=== PATIENT | male | born 1960 | race Caucasian/White ===

== ENCOUNTER 2020-11-15 08:55 | Day surgery (SDC) | payer MEDICARE, OTHER, SELFPAY ==
--- NOTE | 2020-11-14 08:57 | HO.ANESPROP2 ---
Documented by User: Carolyn Duarte NP 11/14/20 08:58 HPI - Anesthesia Eval Consult details Narrative: 60yo M for Upper Endoscopy [facility] Past Medical History Medical History (Updated 11/14/20 @ 08:39 by Abby Zhou RN) Chronic back pain Chronic neck pain Depression Hepatitis C Surgical History Surgical History (Updated 11/14/20 @ 08:40 by Abby Zhou RN) History of back surgery History of removal of cyst Hx of colonoscopy Hx of eye surgery Hx of oral surgery Social History Social History Patient Tobacco Use Status: Former Tobacco user Tobacco use type: Cigarette Use of substances other than those prescribed or required for medical reasons: No Are you DNR?: No Advance Directives: No Advance Directives Information Provided: Yes Recently lost weight without trying: No Nutrition Risks: No Nutritional Risk Poor oral hygiene: No Meds Allergies Allergy/AdvReac Type Severity Reaction Status Date / Time No Known Allergies Allergy Verified 11/15/20 09:11 Home Medications Medication Instructions Recorded Confirmed Last Taken Type Tylenol Extra Strength 11/14/20 Unknown History amitriptyline 10 mg tablet 10 mg PO BEDTIME 11/14/20 11/14/20 Unknown History baclofen 10 mg tablet 10 mg PO TID 11/14/20 11/14/20 Unknown History ibuprofen 800 mg tablet 800 mg PO BID PRN 11/14/20 11/14/20 Unknown History Exam Exam Date and Time: November 14, 2020 0857 Assessment and Plan Assessment Anesthesia Assessment: Chart Reviewed Documented by User: Nima Benson MD 11/15/20 09:40 [facility] Past Medical History Medical History (Updated 11/14/20 @ 08:39 by Abby Zhou RN) Chronic back pain Chronic neck pain Depression Hepatitis C Family History Family history of problems with anesthesia: No Surgical History Surgical History (Updated 11/14/20 @ 08:40 by Abby Zhou RN) History of back surgery History of removal of cyst Hx of colonoscopy Hx of eye surgery Hx of oral surgery History of Problems with Anesthesia: No Social History Social History Patient Tobacco Use Status: Former Tobacco user Tobacco use type: Cigarette Use of substances other than those prescribed or required for medical reasons: No Are you DNR?: No Advance Directives: No Advance Directives Information Provided: Yes Recently lost weight without trying: No Nutrition Risks: No Nutritional Risk Poor oral hygiene: No Meds Allergies Allergy/AdvReac Type Severity Reaction Status Date / Time No Known Allergies Allergy Verified 11/15/20 09:11 Home Medications Medication Instructions Recorded Confirmed Last Taken Type Tylenol Extra Strength 11/14/20 Unknown History amitriptyline 10 mg tablet 10 mg PO BEDTIME 11/14/20 11/14/20 Unknown History baclofen 10 mg tablet 10 mg PO TID 11/14/20 11/14/20 Unknown History ibuprofen 800 mg tablet 800 mg PO BID PRN 11/14/20 11/14/20 Unknown History Exam Airway Mallampati Class: II TM Dist: >3cm Neck ROM: Full Loose/Missing/Broken Teeth: No Heart: [id number] Lungs: cta b/l Assessment and Plan Assessment Anesthesia Assessment: Anesthesia Plan Discussed Final Anesthetic Review Family History of Problems with Anesthesia: No History of Problems with Anesthesia: No NPO: Yes ASA Class: II Final Preanesthetic Review: No Changes in Pt Med Stat, Meds/Allgs Chart Reviewed, Consent Obtained/Reviewed and Anes Risks/Benef Reviewed Patient Risk: Intermediate Procedure Risk: Low Assessment/Block/Sedation in SS: Assess/Block/Sedation-SS Anesthetic Plan Anesthetic Plan: MAC: and Agree w/ Assess. and Plan Disposition: Standard PACU
[2020-11-15 09:14] VITALS: BMI 29.5
[2020-11-15 09:31] VITALS: BP 142/84; PULSE 85; RESP 16; TEMP 36.6; O2SAT 96
[2020-11-15] MEDS: Lactated Ringers 1,000 ML 100 ML IVCONT (09:41)
--- NOTE | 2020-11-15 10:51 | MHC.SHP ---
Pre-Procedural Eval Section A Date of Service: 11/15/20 The patient is an INPATIENT: No Changes since office visit: No Cold of Flu in the past 2 weeks, No New Medical Problems, No Changes in Medication and No Patient answered all questions The History & Physical has been completed within 30 days and I have reviewed it.: Yes Section B Chief Complaint: epigastric pain Allergies: Allergies Allergy/AdvReac Type Severity Reaction Status Date / Time No Known Allergies Allergy Verified 11/15/20 09:11 Plan I have reviewed the history and physical and performed a pertinent physical examination on my patient. No changes have occurred unless specified.
--- NOTE | 2020-11-15 11:08 | P.BOP_ITS ---
Brief Operative Note Date of Service: 11/15/20 Pre-op diagnosis: epigastric pain Post-op diagnosis: same (normal) Procedure: EGD Surgeon: Tod Galdamez Anesthesia: MAC Was an Lining Vamper used for this Procedure?: No Estimated blood loss (mL): 5 Pathology: other (antral and egj bxs) Disposition: PACU
[2020-11-15 11:11] VITALS: BP 108/72; PULSE 71; RESP 14; TEMP 36.8; O2SAT 94
[2020-11-15 11:26] VITALS: BP 119/71; PULSE 67; RESP 16; O2SAT 98
--- NOTE | 2020-11-15 11:31 | OP_ITS ---
SURGEON: Tod Galdamez MD INDICATIONS: Epigastric and right upper quadrant pain. PREOPERATIVE DIAGNOSIS: POSTOPERATIVE DIAGNOSIS: PROCEDURE PERFORMED: Upper endoscopy with biopsy. ESTIMATED BLOOD LOSS: COMPLICATIONS: ANESTHESIA: ASSISTANTS: SPECIMENS: MEDICATIONS: Monitored anesthesia care. DESCRIPTION OF PROCEDURE: History and physical performed. The risks and benefits of the procedure were explained to the patient. Informed consent was obtained. The patient was placed in the left lateral decubitus position. The Olympus video gastroscope was introduced into the esophagus, stomach, and duodenum. Examination was performed and the scope was removed. He tolerated the procedure well and was taken to recovery area in stable condition. FINDINGS: Esophagus: The esophagus was normal. The EG junction was slightly irregular. There was no esophagitis. Biopsies were obtained from the EG junction. Stomach: Stomach showed no evidence of masses, ulcers, or polyps. Antral biopsies were obtained to rule out H pylori. Duodenum: The bulb and second portion were normal. IMPRESSION: Normal upper endoscopy. RECOMMENDATION: Follow up the biopsy results. MD MARCELA Arreola/KLAUSL / [id number]
[2020-11-15 11:41] VITALS: BP 130/89; PULSE 69; RESP 18; TEMP 36.7; O2SAT 100
== END 2020-11-15 13:00 | disposition home or self-care (01) ==
PROVIDERS: PCP Hospitalist; Visit Provider Internal Medicine Gastroenterology
PROC: 0DJ08ZZ Inspection of Upper Intestinal Tract, Via Natural or Artificial Opening Endoscopic (ICD-10-PCS; CPT 43235; principal; 2020-11-15 10:30)
DX: R10.13 Epigastric pain (principal); R10.11 Right upper quadrant pain
CPT/HCPCS: 43239; 88305; 88342; J3010

== ENCOUNTER 2020-11-22 08:07 | Outpatient (REF) | payer MEDICARE, OTHER, SELFPAY ==
--- NOTE | ~2020-11-22 | US_ITS ---
EXAMINATION: US ABDOMEN COMPLETE CLINICAL INFORMATION: Epigastric pain. COMPARISON: CT abdomen and pelvis without contrast dated 01/17/2010 TECHNIQUE: Real-time imaging of the abdominal viscera. Technically difficult study secondary to bowel gas. FINDINGS: PANCREAS: Predominantly obscured by bowel gas. The visualized portion of the pancreatic head is unremarkable. ABDOMINAL AORTA: The proximal, mid, and distal segments are normal in caliber. INFERIOR VENA CAVA: Visualized portions are normal. LIVER: The liver is normal in size. The liver contour is normal. There is diffuse increased liver parenchymal echogenicity, consistent with hepatic steatosis. Multiple simple-appearing hepatic cysts with the largest measuring up to 3.5 cm. No additional hepatic parenchymal lesion or biliary ductal dilatation. There is no intrahepatic biliary duct dilatation seen. GALLBLADDER: Normal. The gallbladder is physiologically distended without evidence of stones, sludge, polyps, wall thickening, or pericholecystic fluid. COMMON BILE DUCT: Normal in caliber measuring 0.34 cm in diameter. RIGHT KIDNEY: Normal. No hydronephrosis. No renal calculi or focal parenchymal lesions. The kidney measures 9.7 cm in maximum dimension. LEFT KIDNEY: Normal. No hydronephrosis. No renal calculi or focal parenchymal lesions. The kidney measures 10.8 cm in maximum dimension. SPLEEN: Normal. The spleen measures 8.7 cm in maximum dimension. FREE FLUID: None. US/US abdomen complete IMPRESSION: 1. Increased hepatic parenchymal echogenicity, which can be seen in the setting of steatosis. Underlying hepatocellular disease cannot be excluded. Simple hepatic cysts measuring up to 3.5 cm, new when compared to the CT dated 01/17/2010. No concerning hepatic parenchymal lesion or biliary ductal dilatation. 2. No cholelithiasis, gallbladder wall thickening, or pericholecystic free fluid to suggest acute cholecystitis.
== END 2020-11-22 08:08 | disposition home or self-care (01) ==
LOC: HO.US 08:07
PROVIDERS: PCP Hospitalist; Visit Provider Internal Medicine Gastroenterology
DX: R10.13 Epigastric pain (principal)
CPT/HCPCS: 76700

== ENCOUNTER 2021-03-01 10:12 | Outpatient (REF) | payer MEDICARE, OTHER, SELFPAY ==
[2021-03-01 14:00] LABS: Hematocrit 43.5 % (42.0-52.0); Hemoglobin 14.2 g/dl (14.0-18.0); Mean Corpuscular HGB Conc 32.6 g/dl (31.0-36.0); Mean Corpuscular Hemoglobin 29.4 pg (27.0-33.0); Mean Corpuscular Volume 90.1 fL (80.0-98.0); Mean Platelet Volume 10.1 fL (9.4-12.4); Platelet Count 300 X10*3/uL (160-400); Red Blood Count 4.83 X10*6/uL (4.60-5.80); Red Cell Distribution Width 14.6 % (11.0-16.0); White Blood Count 7.2 X10*3/uL (4.8-10.8)
[2021-03-01 14:04] LABS: Prothrombin Time 10.8 SEC (9.9-13.0)
[2021-03-01 14:28] LABS: Alanine Aminotransferase 24 U/L (0-40); Albumin Level 4.5 g/dL (3.5-5.0); Alkaline Phosphatase 49 U/L (39-117); Aspartate Amino Transferase 21 U/L (5-37); Bilirubin Direct 0.2 mg/dL (0.0-0.5); Bilirubin Total 0.6 mg/dL (0.0-1.0); Total Protein 7.5 g/dL (6.5-8.0)
== END 2021-03-01 10:13 | disposition home or self-care (01) ==
LOC: HO.10HDL 10:12
PROVIDERS: Visit Provider Internal Medicine Gastroenterology
DX: R93.2 Abnormal findings on diagnostic imaging of liver and biliary tract (principal)
CPT/HCPCS: 36415; 80076; 85027; 85610

== ENCOUNTER 2021-03-23 21:51 | Emergency (ER) | payer MEDICARE, OTHER, SELFPAY ==
--- NOTE | ~2021-03-23 | XR_ITS ---
EXAMINATION: XR CHEST CLINICAL INFORMATION: Cough and shortness of breath. COMPARISON: Chest radiograph dated from 02/15/2014. TECHNIQUE: PA view of the chest was obtained. FINDINGS: No significant abnormality is noted involving the heart, lungs, mediastinum, bony thorax or soft tissues. XR/XR chest 1V IMPRESSION: Unremarkable examination.
[2021-03-23 21:56] VITALS: BP 154/94; PULSE 83; RESP 16; TEMP 36.8; O2SAT 97; BMI 28.0
--- NOTE | 2021-03-23 22:37 | ED_ITS ---
HPI - URI/Sore Throat General Chief Complaint: Upper Respiratory Symptoms Stated Complaint: trouble breathing Time Seen by Provider: 03/23/21 22:20 Source: patient Mode of arrival: ambulatory History of Present Illness HPI Narrative: 61-year-old male with a past medical history of chronic back pain, depression, hepatitis-C, presenting to the ED complaining of nonproductive cough and SOB x6 days. Reports returned from [place] today, states went to ED and in [place] and requested nebulizer however wasn't given anything and symptoms have been persistent. Denies fever, chills, chest pain, pedal edema, calf pain, history of clots. Admits tested negative for COVID-19 yesterday prior to return to the [place] MD elicited complaint: cough Onset (ago): day(s) Related Data Home Medications Medication Instructions Recorded Confirmed Tylenol Extra Strength 11/14/20 amitriptyline 10 mg tablet 10 mg PO BEDTIME 11/14/20 11/14/20 baclofen 10 mg tablet 10 mg PO TID 11/14/20 11/14/20 ibuprofen 800 mg tablet 800 mg PO BID PRN 11/14/20 11/14/20 Allergies Allergy/AdvReac Type Severity Reaction Status Date / Time No Known Allergies Allergy Verified 11/15/20 09:11 Review of Systems Verdana 4l Review of Systems: Verdana 4d Verdana 4d Constitutional: No Fever, No Chills ENT/Mouth: No Ear Pain, No Nasal Congestion, No Sinus Pain, No Hoarseness, No sore throat, No Rhinorrhea Cardiovascular: No Chest Pain, + SOB Respiratory: + Cough, No Sputum, No Wheezing, +Dyspnea GastrointestinalGastrointestinal: No Nausea, No Vomiting, No Diarrhea, No Constipation, No Abdominal pain Genitourinary: No Dysuria, No Hematuria, No Flank Pain Musculoskeletal: No joint pain, No Myalgias, No Joint Swelling Skin: No Skin Lesions, No rash Neuro: No Weakness, No Numbness, No Paresthesias Yes all other systems are reviewed and are negative [facility] Past Medical History Attestation statement: The following information was validated with the patient. Medical History Chronic back pain Chronic neck pain Depression Hepatitis C Surgical History History of back surgery History of removal of cyst Hx of colonoscopy Hx of eye surgery Hx of oral surgery Social History Social History Patient Tobacco Use Status: Former Tobacco user Tobacco use type: Cigarette Advance Directives: No Advance Directives Information Provided: Yes Physical Exam Verdana 4l Vital Signs: Verdana 4d Verdana 4d Vital Signs: Verdana 4d Verdana 4Bd Last Vital Signs Verdana 4d [facility] New 4d [facility] New 4d Temp 98.2 F 03/23/21 21:56 [facility] New 4d Pulse 71 03/23/21 23:17 [facility] New 4d Resp 16 03/23/21 23:17 BP 154/94 H 03/23/21 21:56 Pulse Ox 97 03/23/21 21:56 BMI result Body Mass Index 28.0 Const: General: cooperative, healthy appearing, comfortable, no acute distress and anxious Orientation/consciousness: patient oriented x3 Limitations: no limitations HENMT: Head: Yes normal to inspection Ears: hearing grossly normal bilaterally General nose exam: Normal external nose present Face and sinus: Yes normal facial exam Throat: Yes posterior oropharynx normal, Yes tonsils normal and Yes uvula midline Eyes: General: appearance normal, both eyes and all related structures EOM: EOMs intact bilaterally Neck: Neck: Yes normal visual inspection and Yes no meningeal signs Resp: Effort & Inspection: normal respiratory effort, Actively coughing Quality: dry, no respiratory distress and no stridor Auscultation: clear to auscultation bilaterally, no crackles, no rales, no rhonchi and lung sounds not diminished Cardio: Rate: regular rate Heart sounds: S1 normal heart sound present and S2 normal heart sound present GI: Inspection: Yes normal to inspection Skin: Rashes: no rashes Wounds: no wounds Neuro: General: patient oriented x3 and no meningeal signs Gait exam (Neuro): Normal gait present Extrem: General: Yes normal to inspection, Yes no pedal edema and Yes no calf tenderness Course Course Course Narrative: XR chest 1V IMPRESSION: Unremarkable examination. -COVID-19 negative. Patient reports symptomatic improvement after DuoNeb. Results discussed with patient including worrisome signs and symptoms and strict return precautions including close follow-up with PCP. Patient verbalized understanding & feels safe for discharge home at this time MDM - URI/Sore Throat MDM Narrative Medical decision making narrative: 61-year-old male with a past medical history of chronic back pain, depression, hepatitis-C, presenting to the ED complaining of nonproductive cough and SOB x6 days. On exam vital signs stable, NAD/nontoxic appearing, lungs CTA, no pedal edema/calf tenderness. Concern for viral syndrome/COVID-19 vs bronchitis. Rule out pneumonia. Low concern for ACS/PE Plan: CXR, COVID-19 testing, DuoNeb Differential Diagnosis Differential diagnosis: Likely upper respiratory infection, viral infection and bronchitis Medical Records Attestation: I reviewed the patient's medical records. Lab Data Attestation: I reviewed the patient's lab results. Labs: Lab Results 03/23/21 Range/Units 22:42 COVID-19 (TIMOTHY) Negative (Negative) COVID-19 Clin Com See Note Discharge Plan Discharge Clinical Impression: Upper respiratory infection Patient Disposition: Home, Self-Care Instructions: Upper Respiratory Infection (DC) Additional Instructions: Your chest x-ray was unremarkable today in the ED Use albuterol inhaler at home as needed for shortness of breath/wheezing Follow-up with your doctor Rest, stay hydrated, take Tylenol Motrin as needed. If symptoms persist or worsen, constant worsening shortness of breath, developed chest pain, fever please return to the ED Prescriptions: No Action ibuprofen 800 mg Tablet 800 mg PO BID PRN (Reason: Pain) 0RF amitriptyline 10 mg Tablet 10 mg PO BEDTIME 0RF Tylenol Extra Strength 0RF baclofen 10 mg Tablet 10 mg PO TID 0RF Referrals: Physician,Unknown J [Primary Care Provider] - 2 days
[2021-03-23 23:00] LABS: COVID-19 Test Negative (Negative)
[2021-03-23] MEDS: Albuterol/Iprat 2.5/0.5MG 3 ML AMPUL.NEB INHALE (23:14)
[2021-03-23] MEDS: Benzonatate 100 MG CAPSULE 200 MG PO (23:16)
[2021-03-23 23:17] VITALS: PULSE 71; RESP 16; O2SAT 94
== END 2021-03-23 23:31 | disposition home or self-care (01) ==
PROVIDERS: Physician Assistant; Emergency Provider Emergency Medicine
DX: J06.9 Acute upper respiratory infection, unspecified (principal); Z20.822 Contact with and (suspected) exposure to COVID-19; R06.02 Shortness of breath; B19.20 Unspecified viral hepatitis C without hepatic coma
CPT/HCPCS: 71045; 87635; 94640; 99283; 99284

== ENCOUNTER 2021-05-14 21:20 | Emergency (ER) | payer OTHER, SELFPAY ==
[2021-05-14 21:22] VITALS: BP 139/85; PULSE 83; RESP 16; TEMP 36.6; O2SAT 97; BMI 27.9
[2021-05-14 21:56] VITALS: BP 122/75; PULSE 77; RESP 18; TEMP 36.6; O2SAT 95
[2021-05-14 22:01] LABS: COVID-19 Test Negative (Negative); IDNOW Serial# 16C4AD1C
--- NOTE | 2021-05-14 23:16 | ED.URI ---
HPI - URI/Sore Throat General Chief Complaint: Upper Respiratory Symptoms Stated Complaint: SoB, Congested Time Seen by Provider: 05/14/21 23:00 Source: patient Mode of arrival: ambulatory Limitations: no limitations History of Present Illness HPI Narrative: 61-year-old male who presents emergency department for evaluation of shortness of breath, nasal and chest congestion. Patient states that he woke up in the morning and felt short of breath and head congestion his chest. He describes as chest congestion as a discomfort in his anterior chest which is worse with breathing and coughing. He also had a cough which was nonproductive. He did feel short of breath but denied dyspnea on exertion. He states he gets similar symptoms whenever he gets in infection. He has an albuterol inhaler and nebulizer that he uses when he feels this way but he did not use these medications today. He states that throughout the day the symptoms improved. Around 20:00 hours the symptoms came back. He felt anxious. Therefore he came to the emergency department for evaluation. He states that he had a similar illness last month and was COVID negative. The patient states that he has had a Mathieu Mathieu COVID vaccine and received a booster vaccine but does not know the name of the booster shot. He denied fever, chills, nausea, vomiting, diarrhea, myalgias, arthralgias, abdominal pain, frequency, changes bowel movements. MD elicited complaint: cough and other (chest congestion) Pertinent past history: asthma (with infections) Onset (ago): day(s) (1) Consistency: intermittent Severity: moderate Description of mucous: other (non-productive) Able to tolerate fluids by mouth: Yes Exacerbating factors: nothing Relieving factors: nothing Associated symptoms: rhinorrhea, nasal congestion, cough and shortness of breath Treatments prior to arrival: none Related Data Home Medications Medication Instructions Recorded Confirmed Tylenol Extra Strength 11/14/20 amitriptyline 10 mg tablet 10 mg PO BEDTIME 11/14/20 11/14/20 baclofen 10 mg tablet 10 mg PO TID 11/14/20 11/14/20 ibuprofen 800 mg tablet 800 mg PO BID PRN 11/14/20 11/14/20 Previous Rx's Medication Instructions Recorded prednisone 20 mg tablet 60 mg PO DAILY 5 Days #15 tab 05/14/21 Allergies Allergy/AdvReac Type Severity Reaction Status Date / Time No Known Allergies Allergy Verified 11/15/20 09:11 Review of Systems Review of Systems: Yes all other systems are reviewed and are negative [facility] Past Medical History [facility] Narrative: Social history:. The patient denies tobacco use. He is a former smoker. He quit 25 years prior. He smoked for 10 years. He denies alcohol use. He denies drug use. Medical History Chronic back pain Chronic neck pain Depression Hepatitis C Surgical History History of back surgery History of removal of cyst Hx of colonoscopy Hx of eye surgery Hx of oral surgery Social History Social History Patient Tobacco Use Status: Former Tobacco user Tobacco use type: Cigarette Advance Directives: No Advance Directives Information Provided: Yes Physical Exam Vital Signs: Vital Signs: Last Vital Signs Temp 97.9 F 05/14/21 21:56 Pulse 77 05/14/21 21:56 Resp 18 05/14/21 21:56 BP 122/75 05/14/21 21:56 Pulse Ox 95 05/14/21 21:56 BMI result Body Mass Index 27.9 Const: General: cooperative and no acute distress Orientation/consciousness: oriented to person and oriented to place Limitations: no limitations HEENT: Head: Yes normal to inspection, Yes normocephalic and Yes atraumatic Ears: external ears normal General nose exam: Normal external nose present Face and sinus: Yes normal facial exam Mouth: Normal oral and palatal mucosa present Throat: Yes posterior oropharynx normal Eyes: General: appearance normal, both eyes and all related structures Pupils: Equal, round and reactive pupils present Neck: Neck: Yes normal visual inspection, Yes no lymphadenopathy, Yes trachea midline and Yes supple Chest: Chest palpation & inspection: normal inspection of the chest and normal palpation of entire chest wall Resp: Effort & Inspection: normal respiratory effort and able to speak in complete sentences Auscultation: no rales, no rhonchi and wheezes scattered wheezes and throughout Cardio: Rate: regular rate Rhythm: regular rhythm Heart sounds: S1 normal heart sound present, S2 normal heart sound present and no murmurs GI: Inspection: Yes normal to inspection Palpation (GI): Soft to palpation, nontender and no guarding Auscultation: normal bowel sounds : General: Yes no CVA tenderness Back/Spine/Pelvis: Back: no CVA tenderness Skin: General skin exam: no rashes or lesions noted Neuro: General: oriented to person and oriented to place Cranial nerves: Yes CN's II-XII intact bilaterally and Yes Equal, round and reactive pupils present Cognition (Neuro): normal cognition Motor exam (neuro): 5/5 motor strength present throughout Extrem: General: Yes normal to inspection Psych: Appearance: grossly normal Speech and movement: Normal speech and movement present Affect: normal affect Attitude: cooperative Thought process: Normal thought process present Thought content: Normal thought content present Course Course Course Narrative: 61-year-old male who presents emergency department for evaluation of 1 day of rhinorrhea, chest congestion, nonproductive cough and shortness of breath. The patient did not take any medications prior to coming to emergency department vital signs were stable. Lung exam revealed diffuse wheezing with no rales or rhonchi. COVID-19 test was negative . The patient's presentation is consistent with a viral URI causing bronchospasm. I did discuss this with him. Patient was given 4 puffs often albuterol inhaler in the emergency department with improvement of his wheezing. He is also treated prednisone 60 mg orally. The patient was started on prednisone 60 mg once a day for 5 days, he is advised to uses albuterol 2 puffs 4 times a day. He was given verbal and printed instructions and discharged home. MDM - URI/Sore Throat Lab Data Labs: Lab Results 05/14/21 Range/Units 21:32 COVID-19 (TIMOTHY) Negative (Negative) COVID-19 Clin Com See Note Discharge Plan Discharge Clinical Impression: Acute bronchospasm Upper respiratory infection Qualifiers: URI type: unspecified viral URI Qualified Code(s): J06.9 - Acute upper respiratory infection, unspecified Patient Disposition: Home, Self-Care Instructions: Upper Respiratory Infection (ED), Bronchospasm (ED) Additional Instructions: You received 4 puffs often albuterol inhaler here in the emergency department. Use your albuterol inhaler 2 puffs 4 times a day for the next 5 days. You received prednisone 60 mg orally. Take prednisone 20 mg pills, 3 pills once a day for 5 days, take your next dose tomorrow morning. Take Tylenol (acetaminophen) 500 mg pills, 2 pills every 4 to 6 hours as needed for pain or fever. Your COVID-19 test in the emergency department was negative. If you get symptoms that are more consistent with COVID-19 over the next 3-4 days then you should consider getting a repeat COVID-19 test. Follow-up with your doctor in 2 days. Please return to the emergency department if your symptoms get worse or if you develop any symptoms that are concerning to you. Prescriptions: New prednisone 20 mg tablet 60 mg PO DAILY 5 Days Qty: 15 0RF No Action ibuprofen 800 mg Tablet 800 mg PO BID PRN (Reason: Pain) 0RF amitriptyline 10 mg Tablet 10 mg PO BEDTIME 0RF Tylenol Extra Strength 0RF baclofen 10 mg Tablet 10 mg PO TID 0RF
[2021-05-14] MEDS: Albuterol Sulfate 90 MCG 8 GM INHALER 4 PUFF INHALE (23:27)
[2021-05-14] MEDS: predniSONE 20 MG TABLET 60 MG PO (23:28)
--- NOTE | 2021-05-14 23:44 | PC.NURSE ---
pt a&o, no sob or chest pain at this time. pt is in no distress at time of discharge. Reviewed discharge instructions and medications. Pt verbalized understanding.
== END 2021-05-14 23:46 | disposition home or self-care (01) ==
PROVIDERS: Emergency Provider Emergency Medicine Emergency Medical Services
DX: J98.01 Acute bronchospasm (principal); J06.9 Acute upper respiratory infection, unspecified; R06.02 Shortness of breath; R05.9 Cough, unspecified; Z20.822 Contact with and (suspected) exposure to COVID-19; Z87.891 Personal history of nicotine dependence
CPT/HCPCS: 87635; 99284

== ENCOUNTER 2022-07-20 22:57 | Emergency (ER) | payer MEDICARE, MEDICAID, SELFPAY ==
[2022-07-20 23:10] VITALS: BP 146/95; PULSE 80; RESP 18; O2SAT 95; BMI 28.7
[2022-07-20 23:36] LABS: MANUAL DIFF FLAG NO
[2022-07-20 23:37] LABS: Basophils Absolute Auto 0.1 X10*3/uL (0.0-0.2); Basophils Percent Auto 1.1 % (0-2); Eosinophils Absolute Auto 0.3 X10*3/uL (0.0-0.4); Eosinophils Percent Auto 5.1 % (0-4); Hematocrit 38.4 % (42.0-52.0); Hemoglobin 12.9 g/dl (14.0-18.0); Imm Gran Abs Auto 0.02 X10*3/uL (0.00-0.03); Imm Gran Pct Auto 0.3 % (0.0-0.4); Lymphocytes Percent Auto 31.4 % (20-40); Mean Corpuscular HGB Conc 33.6 g/dl (31.0-36.0); Mean Corpuscular Hemoglobin 30.1 pg (27.0-33.0); Mean Corpuscular Volume 89.5 fL (80.0-98.0); Mean Platelet Volume 9.7 fL (9.4-12.4); Monocytes Absolute Auto 0.7 X10*3/uL (0.1-1.2); Monocytes Percent Auto 10.9 % (2-11); Neutrophils Absolute Auto 3.3 x10*3/uL (2.0-8.3); Neutrophils Percent Auto 51.2 % (45-73); Platelet Count 278 X10*3/uL (160-400); Red Blood Count 4.29 X10*6/uL (4.60-5.80); White Blood Count 6.4 X10*3/uL (4.8-10.8)
[2022-07-20 23:56] LABS: Alanine Aminotransferase 18 U/L (0-40); Albumin Level 4.3 g/dL (3.5-5.0); Alkaline Phosphatase 74 U/L (39-117); Anion Gap 13 (12-20); Aspartate Amino Transferase 20 U/L (5-37); Bilirubin Total 0.2 mg/dL (0.0-1.0); Blood Urea Nitrogen 18 mg/dL (9-16); Calcium 9.5 mg/dL (8.4-10.2); Carbon Dioxide 24 mmol/L (22-29); Chloride 109 mmol/L (96-108); Creatinine Clr Calc Pharmacy 75.4; Estimated Glomerular Filt Rate > 60; Glucose Random 106 mg/dL (60-115); Potassium 3.9 mmol/L (3.3-5.1); Sodium 142 mmol/L (135-145)
[2022-07-21 01:20] VITALS: BP 141/84; PULSE 65; RESP 10; TEMP 36.5; O2SAT 97
--- NOTE | 2022-07-21 01:38 | ED_ITS ---
HPI - SOB/Dyspnea General Chief Complaint: Dyspnea Stated Complaint: shortness of breath Time Seen by Provider: 07/21/22 01:19 Source: patient Mode of arrival: ambulatory Limitations: no limitations History of Present Illness HPI Narrative: 62-year-old male presents with shortness of breath. His acute on chronic. Moderate to severe. There is no clear relieving or exacerbating features. Denies any fevers or chills. Denies any cough. He does admit to having some wheezing. He has tried albuterol inhaler which he no using 3 times a day to where is a wrist previously he is worse or adequately. He does report having spirometry at some point in the past but is unclear what the results are. Patient also reports having had a recent CT scan but has not been informed of the results. Today, he notes that the albuterol is not helping. Sometimes his symptoms are relieved by walking in the fresh air. Patient denies any chest pain, mucus production or significant coughing Related Data Home Medications Medication Instructions Recorded Confirmed Tylenol Extra Strength 11/14/20 amitriptyline 10 mg tablet 10 mg PO BEDTIME 11/14/20 11/14/20 baclofen 10 mg tablet 10 mg PO TID 11/14/20 11/14/20 ibuprofen 800 mg tablet 800 mg PO BID PRN Pain 11/14/20 11/14/20 Previous Rx's Medication Instructions Recorded prednisone 20 mg tablet 60 mg PO DAILY 5 days #15 tabs 05/14/21 fluticasone 250 mcg-salmeterol 50 1 inh inhalation Q12H #60 ea 07/21/22 mcg/dose blistr powdr for inhalation (Advair Diskus) prednisone 20 mg tablet 20 mg PO DAILY #5 tabs 07/21/22 Allergies Allergy/AdvReac Type Severity Reaction Status Date / Time No Known Allergies Allergy Verified 11/15/20 09:11 Review of Systems Review of Systems: CONSTITUTIONAL: Denies weight loss, fever and chills. HEENT: Denies changes in vision and hearing. RESPIRATORY: Positive SOB and cough. CV: Denies palpitations no CP. GI: Denies abdominal pain, nausea, vomiting and diarrhea. : Denies dysuria and urinary frequency. MSK: Denies myalgia and joint pain. SKIN: Denies rash and pruritus. NEUROLOGICAL: Denies headache and syncope. PSYCHIATRIC: Denies recent changes in mood. Denies anxiety and depression. All other ROS are negative unless in HPI [facility] Past Medical History Medical History Chronic back pain Chronic neck pain Depression Hepatitis C Surgical History History of back surgery History of removal of cyst Hx of colonoscopy Hx of eye surgery Hx of oral surgery Social History Social History Patient Tobacco Use Status: Former Tobacco user Tobacco use type: Cigarette Advance Directives: No Advance Directives Information Provided: Yes Physical Exam Vital Signs: Vital Signs: Last Vital Signs Temp 97.7 F 07/21/22 01:20 Pulse 65 07/21/22 01:20 Resp 10 L 07/21/22 01:20 BP 141/84 H 07/21/22 01:20 Pulse Ox 97 07/21/22 01:20 O2 Del Method Room Air 07/21/22 01:20 BMI result Body Mass Index 28.7 GEN: Well developed, no acute distress, alert, oriented HEENT: Normocephalic, atraumatic, normal external ears, nose appears normal, no oropharyngeal edema or exudates Eyes: Normal to appearance Neck: Supple, no lymphadenopathy Respiratory: Talks in complete sentences, no respiratory distress, clear to auscultation bilaterally Cardiovascular: Regular rate and rhythm, no murmurs rubs or gallops Abdomen: Soft, nontender, nondistended, no guarding, no rebound Back: No CVA tenderness Extremities: No clubbing cyanosis or edema Neurologic: No focal neurologic deficits, cranial nerves 2-12 intact, strength is 5/5 bilaterally Skin: No rash Course Course Course Narrative: 60-year-old male presents with acute on chronic shortness of breath. Examination was unremarkable. As he has had a increase in the use of his rescue inhaler from sporadic to now 3 times per day the last 2 weeks, I do believe patient would benefit from a short course oral steroids, inhaled steroids and continued use of his rescue inhaler. I have also would like to refer him to Pulmonary Medicine for full workup. Medical Decision Making Medical Decision Making MDM Narrative: Patient presents with acute on chronic dyspnea. Examination is unremarkable. Differential diagnosis could include asthma, COPD, COPD exacerbation, bronchitis, pneumonia, deconditioning, anemia. Patient will have routine lab testing. Patient had a recent CT scan of the chest which is not available. Lungs are clear to auscultation bilateral. I do not believe an x-ray would be helpful at this time as I doubt he does have pneumonia or other infectious etiology of his symptoms. I will recommend oral and inhaled steroids to augment his rescue inhaler and referral to Pulmonary Medicine. Differential Diagnosis Differential Diagnoses: The differential diagnosis associated with the presentation includes (See above) Dyspnea Lab Data MDM Lab Attestation statement: I reviewed the patient's lab results. 07/20/22 23:31 07/20/22 23:31 Labs: Lab Results 07/20/22 07/20/22 Range/Units 23:31 23:31 WBC 6.4 (4.8-10.8) X10*3/uL RBC 4.29 L (4.60-5.80) X10*6/uL Hgb 12.9 L (14.0-18.0) g/dl Hct 38.4 L (42.0-52.0) % MCV 89.5 (80.0-98.0) fL MCH 30.1 (27.0-33.0) pg MCHC 33.6 (31.0-36.0) g/dl RDW 14.0 (11.0-16.0) % Plt Count 278 (160-400) X10*3/uL MPV 9.7 (9.4-12.4) fL Immature Gran % (Auto) 0.3 (0.0-0.4) % Neut % (Auto) 51.2 (45-73) % Lymph % (Auto) 31.4 (20-40) % [place] % (Auto) 10.9 (2-11) % Eos % (Auto) 5.1 H (0-4) % Baso % (Auto) 1.1 (0-2) % Lymph # (Auto) 2.0 (1.2-4.9) X10*3/uL [place] # (Auto) 0.7 (0.1-1.2) X10*3/uL Eos # (Auto) 0.3 (0.0-0.4) X10*3/uL Baso # (Auto) 0.1 (0.0-0.2) X10*3/uL Abs Immat Gran (auto) 0.02 (0.00-0.03) X10*3/uL Absolute Neuts (auto) 3.3 (2.0-8.3) x10*3/uL Absolute Nucleated RBC 0.000 (0.0-0.012) X10*3/uL Nucleated RBC % (auto) 0.0 (0.0-0.2) /100WBC Sodium 142 (135-145) mmol/L Potassium 3.9 (3.3-5.1) mmol/L Chloride 109 H (96-108) mmol/L Carbon Dioxide 24 (22-29) mmol/L Anion Gap 13 (12-20) BUN 18 H (9-16) mg/dL Creatinine 1.15 (0.5-1.4) mg/dL Estim Creat Clear Calc 75.4 Estimated GFR > 60 Random Glucose 106 (60-115) mg/dL Calcium 9.5 (8.4-10.2) mg/dL Total Bilirubin 0.2 (0.0-1.0) mg/dL AST 20 (5-37) U/L ALT 18 (0-40) U/L Alkaline Phosphatase 74 (39-117) U/L Total Protein 7.0 (6.5-8.0) g/dL Albumin 4.3 (3.5-5.0) g/dL Tests considered The following testing was considered but not selected: X-ray Prescription Management I considered prescription management with: Antibiotic Discharge Plan Discharge Clinical Impression: Chronic dyspnea Patient Disposition: Home, Self-Care Instructions: How to Use a Metered-Dose Inhaler (ED), Dyspnea (ED) Prescriptions: New fluticasone propion-salmeterol [Advair Diskus] 250-50 mcg/dose blister with device 1 inh inhalation Q12H Qty: 60 0RF prednisone 20 mg tablet 20 mg PO DAILY Qty: 5 0RF No Action ibuprofen 800 mg Tablet 800 mg PO BID PRN (Reason: Pain) amitriptyline 10 mg Tablet 10 mg PO BEDTIME Tylenol Extra Strength baclofen 10 mg Tablet 10 mg PO TID prednisone 20 mg tablet 60 mg PO DAILY 5 Days Qty: 15 0RF Referrals: Ervin Rockwell MD [Physician] -
[2022-07-21] MEDS: dexAMETHasone 2 MG TABLET 10 MG PO (02:10)
== END 2022-07-21 02:22 | disposition home or self-care (01) ==
PROVIDERS: Emergency Provider Emergency Medicine
DX: R06.02 Shortness of breath (principal); Z87.891 Personal history of nicotine dependence; Z79.899 Other long term (current) drug therapy
CPT/HCPCS: 36415; 80053; 85025; 99282; 99283; J8540

== ENCOUNTER 2022-10-13 01:22 | Emergency (ER) | payer MEDICARE, MEDICAID, SELFPAY ==
--- NOTE | ~2022-10-13 | XR_ITS ---
EXAMINATION: XR CHEST CLINICAL INFORMATION: Shortness of breath, cough COMPARISON: 03/23/2021 TECHNIQUE: Frontal view of the chest was obtained. FINDINGS: The lungs are clear with no focal consolidation. No evidence of pneumothorax, pulmonary edema, or pleural effusions. The cardiomediastinal silhouette is unremarkable. No acute osseous findings. XR/XR chest 1V IMPRESSION: No acute cardiopulmonary findings.
[2022-10-13 01:27] VITALS: BP 148/91; PULSE 85; RESP 17; TEMP 36.5; O2SAT 95; BMI 29.5
[2022-10-13 02:40] VITALS: BP 138/86; PULSE 82; RESP 16; TEMP 36.8; O2SAT 96
[2022-10-13 03:11] LABS: COVID-19 Test Negative (Negative); IDNOW Serial# 6674DD1D
--- NOTE | 2022-10-13 04:06 | ED_ITS ---
HPI - General Adult General Chief complaint: General Medical Stated complaint: panic attacks, SOB Time Seen by Provider: 10/13/22 04:00 Source: patient Mode of arrival: ambulatory Limitations: no limitations History of Present Illness HPI narrative: 62-year-old male with history of chronic back pain presents with acute shortness of breath, anxiety and panic. Patient obtained a new mattress today. Went to lie down it was firm he started to feel chest congestion, shortness of breath and then developed a panic attack. He has had similar symptoms in the past associated with anxiety. He went outside and found to be humid in a worsened shortness of breath. Then 1 drove in his truck with the air conditioning on. It this did not improve his symptoms either so he decided to come the hospital. At this point, the patient feels no anxiousness, no shortness of breath, slight congestion he has had no fevers no chills. Denies any chest pain, palpitations, lightheadedness. His symptoms appear to have relieved just by coming to the emergency department. Related Data Home Medications Medication Instructions Recorded Confirmed Tylenol Extra Strength 11/14/20 amitriptyline 10 mg tablet 10 mg PO BEDTIME 11/14/20 11/14/20 baclofen 10 mg tablet 10 mg PO TID 11/14/20 11/14/20 ibuprofen 800 mg tablet 800 mg PO BID PRN Pain 11/14/20 11/14/20 Previous Rx's Medication Instructions Recorded prednisone 20 mg tablet 60 mg PO DAILY 5 days #15 tabs 05/14/21 budesonide 180 mcg/actuation 2 inh inhalation QAM #1 ea 07/21/22 breath activated powder inhaler (Pulmicort Flexhaler) fluticasone 250 mcg-salmeterol 50 1 inh inhalation Q12H #60 ea 07/21/22 mcg/dose blistr powdr for inhalation (Advair Diskus) prednisone 20 mg tablet 20 mg PO DAILY #5 tabs 07/21/22 Allergies Allergy/AdvReac Type Severity Reaction Status Date / Time No Known Allergies Allergy Verified 10/13/22 01:27 Review of Systems Review of Systems: CONSTITUTIONAL: Denies weight loss, fever and chills. HEENT: Denies changes in vision and hearing. RESPIRATORY: + SOB - cough. CV: Denies palpitations no CP. GI: Denies abdominal pain, nausea, vomiting and diarrhea. : Denies dysuria and urinary frequency. MSK: Denies myalgia and joint pain. SKIN: Denies rash and pruritus. NEUROLOGICAL: Denies headache and syncope. PSYCHIATRIC: Denies recent changes in mood. Denies anxiety and depression. All other ROS are negative unless in HPI [facility] Past Medical History Medical History Chronic back pain Chronic neck pain Depression Hepatitis C Surgical History History of back surgery History of removal of cyst Hx of colonoscopy Hx of eye surgery Hx of oral surgery Social History Social History Patient Tobacco Use Status: Former Tobacco user Tobacco use type: Cigarette Advance Directives: No Advance Directives Information Provided: Yes Physical Exam ED Vital Signs: Vital Signs - 24 hr 10/13/22 01:27 10/13/22 02:40 Temperature 97.7 F 98.2 F Pulse Rate 85 82 Respiratory Rate 17 16 Blood Pressure 148/91 H 138/86 Pulse Oximetry 95 96 Oxygen Delivery Method Room Air Room Air BMI result Body Mass Index 29.5 GEN: Well developed, no acute distress, alert, oriented HEENT: Normocephalic, atraumatic, normal external ears, nose appears normal, no oropharyngeal edema or exudates Eyes: Normal to appearance Neck: Supple, no lymphadenopathy Respiratory: Talks in complete sentences, no respiratory distress, clear to auscultation bilaterally Cardiovascular: Regular rate and rhythm, no murmurs rubs or gallops Abdomen: Soft, nontender, nondistended, no guarding, no rebound Back: No CVA tenderness Extremities: No clubbing cyanosis or edema Neurologic: No focal neurologic deficits, cranial nerves 2-12 intact, strength is 5/5 bilaterally Skin: No rash Course Course Course Narrative: The workup is complete. COVID negative. Chest x-ray reveals no acute cardiopulmonary disease. This appears to be likely an anxiety/panic attack. Patient will return for any worsening concerning symptoms. I did offer prescription for hydroxyzine however he preferred not to take this medication. I recommended close follow-up with his primary care provider. Medical Decision Making Medical Decision Making MDM Narrative: 60-year-old male presents with acute shortness of breath, congestion, anxiety and panic. Examination is benign. I will order chest x-ray and COVID test. He had no chest pain, palpitations, lightheadedness. He describes a history of this associated with anxiety and panic. He did have a new mattress which she is wondering if this could have induced some of his anxiety. Currently feels good with no complaints at this time. Has no cardiac history. No history of pulmonary embolus DVT. Will re-evaluate patient following full workup. Differential Diagnosis Differential Diagnoses: The differential diagnosis associated with the presentation includes (Anxiety, stress, viral infection, panic, CHF) Lab Data MDM Lab Attestation statement: I reviewed the patient's lab results. Labs: Lab Results 10/13/22 Range/Units 02:38 COVID-19 (TIMOTHY) Negative (Negative) COVID-19 Clin Com See Note Independent Interpretation I performed an independent interpretation of an: Plain X-Ray (Chest: No acute cardiopulmonary disease) Prescription Management I considered prescription management with: Other (Anxiety medication) Discharge Plan Discharge Clinical Impression: Acute dyspnea, Panic Patient Disposition: Home, Self-Care Instructions: Dyspnea (ED), Panic Attack (ED), Anxiety (ED) Prescriptions: No Action ibuprofen 800 mg Tablet 800 mg PO BID PRN (Reason: Pain) amitriptyline 10 mg Tablet 10 mg PO BEDTIME Tylenol Extra Strength baclofen 10 mg Tablet 10 mg PO TID prednisone 20 mg tablet 60 mg PO DAILY 5 Days Qty: 15 0RF fluticasone propion-salmeterol [Advair Diskus] 250-50 mcg/dose blister with device 1 inh inhalation Q12H Qty: 60 0RF prednisone 20 mg tablet 20 mg PO DAILY Qty: 5 0RF Pulmicort Flexhaler 180 mcg/actuation aerosol powdr breath activated 2 inh inhalation QAM Qty: 1 0RF Referrals: Physician,Unknown J [Primary Care Provider] - (Primary care provider within 3-5 days)
[2022-10-13 04:45] VITALS: BP 133/78; PULSE 72; RESP 18; O2SAT 98
== END 2022-10-13 04:50 | disposition home or self-care (01) ==
PROVIDERS: Emergency Provider Emergency Medicine
DX: R06.02 Shortness of breath (principal); F41.0 Panic disorder [episodic paroxysmal anxiety]
CPT/HCPCS: 71045; 87635; 99283; 99284

== ENCOUNTER 2022-10-17 23:00 | Emergency (ER) | payer OTHER, SELFPAY ==
[2022-10-17 23:03] VITALS: BP 159/92; PULSE 83; RESP 18; TEMP 36.6; O2SAT 95; BMI 29.7
[2022-10-17 23:32] VITALS: BP 141/83; PULSE 74; RESP 17; TEMP 36.4; O2SAT 97
--- NOTE | 2022-10-17 23:41 | ECG_ITS ---
Test Reason : CHEST TIGHTNESS Blood Pressure : / mmHG Vent. Rate : 067 BPM Atrial Rate : 067 BPM P-R Int : 206 ms QRS Dur : 080 ms QT Int : 394 ms P-R-T Axes : 069 038 048 degrees QTc Int : 416 ms Normal sinus rhythm Normal ECG When compared with ECG of 15-FEB-2014 22:40, ME interval has decreased Referred By: Generic ED Physician Electronically Signed By:REJI VERNON
[2022-10-17 23:57] LABS: MANUAL DIFF FLAG NO
--- NOTE | 2022-10-17 23:57 | PC.NURSE ---
Pt aox4 resting at the bedside reporting chest tightness and difficulty breathing. Reports increased anxiety since purchasing a mattress last Saturday. VSS. Denies SI/HI at this time. Tearful at the bedside. Reports chronic back pain, 8/10, chest pain, 4/10. Pending lab results and physician eval.
[2022-10-17 23:59] LABS: Basophils Absolute Auto 0.1 X10*3/uL (0.0-0.2); Basophils Percent Auto 1.1 % (0-2); Eosinophils Absolute Auto 0.3 X10*3/uL (0.0-0.4); Eosinophils Percent Auto 4.9 % (0-4); Hematocrit 37.9 % (42.0-52.0); Hemoglobin 12.6 g/dl (14.0-18.0); Imm Gran Abs Auto 0.02 X10*3/uL (0.00-0.03); Imm Gran Pct Auto 0.3 % (0.0-0.4); Lymphocytes Absolute Auto 1.8 X10*3/uL (1.2-4.9); Lymphocytes Percent Auto 28.8 % (20-40); Mean Corpuscular HGB Conc 33.2 g/dl (31.0-36.0); Mean Corpuscular Hemoglobin 28.7 pg (27.0-33.0); Mean Corpuscular Volume 86.3 fL (80.0-98.0); Mean Platelet Volume 9.8 fL (9.4-12.4); Monocytes Absolute Auto 0.9 X10*3/uL (0.1-1.2); Monocytes Percent Auto 14.7 % (2-11); Neutrophils Absolute Auto 3.2 x10*3/uL (2.0-8.3); Neutrophils Percent Auto 50.2 % (45-73); Platelet Count 259 X10*3/uL (160-400); Red Blood Count 4.39 X10*6/uL (4.60-5.80); Red Cell Distribution Width 14.4 % (11.0-16.0); White Blood Count 6.3 X10*3/uL (4.8-10.8)
[2022-10-18 00:16] LABS: Alanine Aminotransferase 16 U/L (0-40); Alkaline Phosphatase 53 U/L (39-117); Anion Gap 10 (12-20); Aspartate Amino Transferase 18 U/L (5-37); Bilirubin Total 0.2 mg/dL (0.0-1.0); Blood Urea Nitrogen 16 mg/dL (9-16); Calcium 9.4 mg/dL (8.4-10.2); Carbon Dioxide 24 mmol/L (22-29); Chloride 109 mmol/L (96-108); Creatinine Clr Calc Pharmacy 101.7; Estimated Glomerular Filt Rate > 60; Glucose Random 101 mg/dL (60-115); Potassium 3.9 mmol/L (3.3-5.1); Sodium 139 mmol/L (135-145); Total Protein 6.5 g/dL (6.5-8.0)
[2022-10-18 00:20] LABS: Troponin-I High Sensitivity < 2.7 ng/L (<3.5-35.0)
--- NOTE | 2022-10-18 00:27 | ED.ANXIETY ---
HPI - Anxiety General Chief Complaint: Anxiety Stated Complaint: panic attack Time Seen by Provider: 10/18/22 00:05 Source: patient Mode of arrival: ambulatory Limitations: no limitations History of Present Illness HPI narrative: Patient with frequent panic attacks 2-3 times a week today while going to sleep felt similar panic attack with throat chest closing feel depressed denies any SI patient does have psychiatrist and therapist who follows Related Data Home Medications Medication Instructions Recorded Confirmed Tylenol Extra Strength 11/14/20 amitriptyline 10 mg tablet 10 mg PO BEDTIME 11/14/20 11/14/20 baclofen 10 mg tablet 10 mg PO TID 11/14/20 11/14/20 ibuprofen 800 mg tablet 800 mg PO BID PRN Pain 11/14/20 11/14/20 Previous Rx's Medication Instructions Recorded prednisone 20 mg tablet 60 mg PO DAILY 5 days #15 tabs 05/14/21 budesonide 180 mcg/actuation 2 inh inhalation QAM #1 ea 07/21/22 breath activated powder inhaler (Pulmicort Flexhaler) fluticasone 250 mcg-salmeterol 50 1 inh inhalation Q12H #60 ea 07/21/22 mcg/dose blistr powdr for inhalation (Advair Diskus) prednisone 20 mg tablet 20 mg PO DAILY #5 tabs 07/21/22 lorazepam 1 mg tablet (Ativan) 1 mg PO BEDTIME PRN anxiety/sleep 10/18/22 #14 tabs Allergies Allergy/AdvReac Type Severity Reaction Status Date / Time No Known Allergies Allergy Verified 10/17/22 23:09 Review of Systems Review of Systems: Yes all other systems are reviewed and are negative [facility] Past Medical History Medical History Chronic back pain Chronic neck pain Depression Hepatitis C Surgical History History of back surgery History of removal of cyst Hx of colonoscopy Hx of eye surgery Hx of oral surgery Social History Social History Alcohol intake: never Patient Tobacco Use Status: Former Tobacco user Tobacco use type: Cigarette Smoked in Last 30 Days: No Use of substances other than those prescribed or required for medical reasons: No Advance Directives: No Advance Directives Information Provided: No Physical Exam Vital Signs: Vital Signs: Last Vital Signs Temp 97.5 F 10/18/22 00:37 Pulse 75 10/18/22 00:37 Resp 12 10/18/22 00:37 BP 143/92 H 10/18/22 00:37 Pulse Ox 97 10/18/22 00:37 O2 Del Method Room Air 10/18/22 00:37 BMI result Body Mass Index 29.7 Appearance: Alert. Oriented X3. No acute distress. Anxious Eyes: PERRLA, No Nystagmus ENT: Pharynx normal. Oral Mucosa moist Neck: Normal inspection. Neck supple. CVS: Normal heart rate and rhythm. Pulses normal. Respiratory: No respiratory distress. Equal air entry bilateral, no wheezing/rales/rhonchi Abdomen: Soft and nontender. Bowel sounds are present, Skin: Skin warm and dry. Normal skin color. Normal skin turgor. Extremities: No lower extremity edema. No calf tenderness Neuro: Oriented X 3. No motor deficit. Medications Administered Discontinued Medications Generic Name Dose Route Start Last Admin Trade Name Freq PRN Reason Stop Dose Admin Hydroxyzine HCl 50 mg 10/18/22 00:27 10/18/22 00:32 Hydroxyzine Hcl 50 Mg Tablet PO 10/18/22 00:28 50 mg ONCE ONE Administration Medical Decision Making Medical Decision Making [facility] Narrative: Patient with panic attack will discharge patient home on Ativan advised to follow-up psychiatry/PCP Differential Diagnosis Differential Diagnoses: The differential diagnosis associated with the presentation includes Anxiety/panic/depression/musculoskeletal pain Lab Data [facility] Lab Attestation statement: I reviewed the patient's lab results. 10/17/22 23:54 10/17/22 23:54 Labs: Lab Results 10/17/22 10/17/22 10/17/22 Range/Units 23:54 23:54 23:54 WBC 6.3 (4.8-10.8) X10*3/uL RBC 4.39 L (4.60-5.80) X10*6/uL Hgb 12.6 L (14.0-18.0) g/dl Hct 37.9 L (42.0-52.0) % MCV 86.3 (80.0-98.0) fL MCH 28.7 (27.0-33.0) pg MCHC 33.2 (31.0-36.0) g/dl RDW 14.4 (11.0-16.0) % Plt Count 259 (160-400) X10*3/uL MPV 9.8 (9.4-12.4) fL Immature Gran % (Auto) 0.3 (0.0-0.4) % Neut % (Auto) 50.2 (45-73) % Lymph % (Auto) 28.8 (20-40) % [place] % (Auto) 14.7 H (2-11) % Eos % (Auto) 4.9 H (0-4) % Baso % (Auto) 1.1 (0-2) % Lymph # (Auto) 1.8 (1.2-4.9) X10*3/uL [place] # (Auto) 0.9 (0.1-1.2) X10*3/uL Eos # (Auto) 0.3 (0.0-0.4) X10*3/uL Baso # (Auto) 0.1 (0.0-0.2) X10*3/uL Abs Immat Gran (auto) 0.02 (0.00-0.03) X10*3/uL Absolute Neuts (auto) 3.2 (2.0-8.3) x10*3/uL Absolute Nucleated RBC 0.000 (0.0-0.012) X10*3/uL Nucleated RBC % (auto) 0.0 (0.0-0.2) /100WBC Sodium 139 (135-145) mmol/L Potassium 3.9 (3.3-5.1) mmol/L Chloride 109 H (96-108) mmol/L Carbon Dioxide 24 (22-29) mmol/L Anion Gap 10 L (12-20) BUN 16 (9-16) mg/dL Creatinine 0.84 (0.5-1.4) mg/dL Estim Creat Clear Calc 101.7 Estimated GFR > 60 Random Glucose 101 (60-115) mg/dL Calcium 9.4 (8.4-10.2) mg/dL Total Bilirubin 0.2 (0.0-1.0) mg/dL AST 18 (5-37) U/L ALT 16 (0-40) U/L Alkaline Phosphatase 53 (39-117) U/L Troponin I High Sens < 2.7 (<3.5-35.0) ng/L Total Protein 6.5 (6.5-8.0) g/dL Albumin 4.0 (3.5-5.0) g/dL Discharge Plan Discharge Clinical Impression: Panic disorder Patient Disposition: Home, Self-Care Instructions: Panic Attack (ED) Additional Instructions: Continue your medications Medication for anxiety and sleep every night as needed Prescriptions: New lorazepam [Ativan] 1 mg tablet 1 mg PO BEDTIME PRN (Reason: anxiety/sleep) Qty: 14 0RF No Action ibuprofen 800 mg Tablet 800 mg PO BID PRN (Reason: Pain) amitriptyline 10 mg Tablet 10 mg PO BEDTIME Tylenol Extra Strength baclofen 10 mg Tablet 10 mg PO TID prednisone 20 mg tablet 60 mg PO DAILY 5 Days Qty: 15 0RF fluticasone propion-salmeterol [Advair Diskus] 250-50 mcg/dose blister with device 1 inh inhalation Q12H Qty: 60 0RF prednisone 20 mg tablet 20 mg PO DAILY Qty: 5 0RF Pulmicort Flexhaler 180 mcg/actuation aerosol powdr breath activated 2 inh inhalation QAM Qty: 1 0RF Interventions: ED Discharge Assessment Last Done: 10/18/22 00:39 Discharge Date/Time: 10/18/22 00:39
[2022-10-18] MEDS: hydrOXYzine HCL 50 MG TABLET PO (00:32)
[2022-10-18 00:37] VITALS: BP 143/92; PULSE 75; RESP 12; TEMP 36.4; O2SAT 97
== END 2022-10-18 00:39 | disposition home or self-care (01) ==
PROVIDERS: Emergency Provider Internal Medicine
DX: F41.0 Panic disorder [episodic paroxysmal anxiety] (principal); F41.9 Anxiety disorder, unspecified; B19.20 Unspecified viral hepatitis C without hepatic coma; F32.A Depression, unspecified; Z87.891 Personal history of nicotine dependence; Z79.899 Other long term (current) drug therapy
CPT/HCPCS: 36415; 80053; 84484; 85025; 93005; 99283; 99285

== ENCOUNTER 2022-11-06 16:39 | Emergency (ER) | payer OTHER, SELFPAY ==
[2022-11-06 17:41] VITALS: BP 142/92; PULSE 90; RESP 18; TEMP 36.4; O2SAT 98; BMI 29.4
--- NOTE | 2022-11-06 17:43 | ED_ITS ---
HPI - Anxiety General Chief Complaint: Anxiety Stated Complaint: Panic attack, med check Time Seen by Provider: 11/06/22 18:32 Source: patient, RN notes reviewed and old records reviewed Mode of arrival: ambulatory Limitations: no limitations History of Present Illness HPI narrative: 62-year-old male presents for evaluation of anxiety. Patient reports that he has been dealing with shortness of breath for over a year since he was diagnosed COVID He has been worked up in the ER for this and ?they never find anything. ? He had some improvement with a ProAir inhaler Patient states he has since developed anxiety Patient has chronic back pain. He reports that he is on baclofen for chronic back pain, Lyrica for chronic back and is also on amitriptyline. Patient felt that the Lyrica may be interacting with the baclofen that for he stopped it 4 days ago Since then he has had even worsening anxiety which he describes as ?work including thoughts. ? He denies any suicidal thoughts but states ?it makes me think I am going to like impending doom. He again reiterates that he has no thoughts of harming himself The patient took 1 dose of Lyrica before coming to the ER because ?I thought maybe I was withdrawing from it. ? Related Data Home Medications Medication Instructions Recorded Confirmed Tylenol Extra Strength 11/14/20 amitriptyline 10 mg tablet 10 mg PO BEDTIME 11/14/20 11/14/20 baclofen 10 mg tablet 10 mg PO TID 11/14/20 11/14/20 ibuprofen 800 mg tablet 800 mg PO BID PRN Pain 11/14/20 11/14/20 Previous Rx's Medication Instructions Recorded prednisone 20 mg tablet 60 mg (3 x 20 mg) PO DAILY 5 days 05/14/21 #15 tabs budesonide 180 mcg/actuation 2 inh inhalation QAM #1 ea 07/21/22 breath activated powder inhaler (Pulmicort Flexhaler) fluticasone 250 mcg-salmeterol 50 1 inh inhalation Q12H #60 ea 07/21/22 mcg/dose blistr powdr for inhalation (Advair Diskus) prednisone 20 mg tablet 20 mg PO DAILY #5 tabs 07/21/22 lorazepam 0.5 mg tablet (Ativan) 1 mg (2 x 0.5 mg) PO BEDTIME PRN 10/18/22 anxiety #28 tabs lorazepam 1 mg tablet (Ativan) 1 mg PO BEDTIME PRN anxiety/sleep 10/18/22 #14 tabs Allergies Allergy/AdvReac Type Severity Reaction Status Date / Time No Known Allergies Allergy Verified 10/17/22 23:09 Review of Systems 2 Constitutional: Constitutional: Denies chills, Denies fatigue and Denies fever(s) Cardiovascular: Cardiovascular: Denies chest pain and Reports dyspnea Respiratory: Respiratory: Denies cough and Reports dyspnea Gastrointestinal: Gastrointestinal: Denies abdominal pain, Denies nausea and Denies vomiting Musculoskeletal: Musculoskeletal: Denies back pain Endocrine: Endocrine: Denies fatigue PMFSH Past Medical History Medical History Chronic back pain Chronic neck pain Depression Hepatitis C Surgical History History of back surgery History of removal of cyst Hx of colonoscopy Hx of eye surgery Hx of oral surgery Social History Social History Alcohol intake: never Patient Tobacco Use Status: Former Tobacco user Tobacco use type: Cigarette Advance Directives: No Advance Directives Information Provided: No Physical Exam 2 Vital Signs: Vital Signs: Last Vital Signs Temp 97.5 F 11/06/22 17:41 Pulse 90 11/06/22 17:41 Resp 18 11/06/22 17:41 BP 142/92 H 11/06/22 17:41 Pulse Ox 98 11/06/22 17:41 O2 Del Method Room Air 11/06/22 17:41 BMI result Body Mass Index 29.4 Const: General: healthy appearing, comfortable, no acute distress, alert and awake Nutritional Appearance: well nourished Orientation/consciousness: p atient oriented x3 HEENT: Head: Yes normocephalic and Yes atraumatic Eyes: Eyelids: Yes eyelids normal Conjunctivae: conjunctivae normal S clerae: sclerae normal Corneas: corneas normal Pupils: Equal, round and reactive pupils present EOM: EOMs intact bilaterally Neck: Neck: Yes full ROM Resp: Effort & Inspection: normal respiratory effort, able to speak in complete sentences and not labored Skin: General skin exam: elasticity normal Neuro: General: patient oriented x3 Cranial nerves: Yes Equal, round and reactive pupils present and Yes Bilaterally intact EOM present Cognition (Neuro): normal cognition Course Course Course Narrative: This is an RME: Additional HPI, ROS, PE not included below will be deferred to primary provider. This is a [id number]-male presenting to the emergency department with complaints of anxiety. He states that he was on pregabalin and baclofen but researched that the combination of these medications and it showed that this can cause respiratory depression. He abruptly stopped the Lyrica. He states that since then he has felt extremely anxious and short of breath. He states that he took 1 dose prior to his arrival at starting to feel somewhat better. No chest pain. Plan: Labs, further ER evaluation needed. EKG ordered Medical Decision Making Medical Decision Making [facility] Narrative: His labs are significant for a very mild anemia. Normal MCV. 62-year-old male presents for evaluation of shortness of breath and anxiety. Patient's EKG is sinus rhythm with rate of 77 beats per minute. No significant electrolyte abnormalities. He is well-appearing with stable vital signs. Patient has increased anxiety likely related to suddenly stopping ureter. I had a lengthy discussion the patient regarding continuing this until he can be safely weaned off it by his primary doctor. I do not see any indication for further medical workup Differential Diagnosis Differential Diagnoses: The differential diagnosis associated with the presentation includes Anxiety Medication noncompliance Dyspnea PE less likely Viral syndrome Lab Data [facility] Lab Attestation statement: I reviewed the patient's lab results. Mild anemia with a hemoglobin 12.0 and hematocrit 37.0. This is just below his most recent labs. Normal MCV. No significant electrolyte abnormalities. BUN just above normal at 17 with a normal creatinine of 0.89 11/06/22 18:07 11/06/22 18:07 Labs: Lab Results 11/06/22 Range/Units 18:07 WBC 8.1 (4.8-10.8) X10*3/uL RBC 4.20 L (4.60-5.80) X10*6/uL Hgb 12.0 L (14.0-18.0) g/dl Hct 37.0 L (42.0-52.0) % MCV 88.1 (80.0-98.0) fL MCH 28.6 (27.0-33.0) pg MCHC 32.4 (31.0-36.0) g/dl RDW 14.6 (11.0-16.0) % Plt Count 462 H D (160-400) X10*3/uL MPV 8.8 L (9.4-12.4) fL Immature Gran % (Auto) 0.2 (0.0-0.4) % Neut % (Auto) 65.8 (45-73) % Lymph % (Auto) 19.3 L (20-40) % [place] % (Auto) 12.0 H (2-11) % Eos % (Auto) 1.6 (0-4) % Baso % (Auto) 1.1 (0-2) % Lymph # (Auto) 1.6 (1.2-4.9) X10*3/uL [place] # (Auto) 1.0 (0.1-1.2) X10*3/uL Eos # (Auto) 0.1 (0.0-0.4) X10*3/uL Baso # (Auto) 0.1 (0.0-0.2) X10*3/uL Abs Immat Gran (auto) 0.02 (0.00-0.03) X10*3/uL Absolute Neuts (auto) 5.3 (2.0-8.3) x10*3/uL Absolute Nucleated RBC 0.000 (0.0-0.012) X10*3/uL Nucleated RBC % (auto) 0.0 (0.0-0.2) /100WBC Sodium 141 (135-145) mmol/L Potassium 3.9 (3.3-5.1) mmol/L Chloride 107 (96-108) mmol/L Carbon Dioxide 25 (22-29) mmol/L Anion Gap 13 (12-20) BUN 17 H (9-16) mg/dL Creatinine 0.89 (0.5-1.4) mg/dL Estim Creat Clear Calc 98.6 Estimated GFR > 60 Random Glucose 104 (60-115) mg/dL Calcium 9.3 (8.4-10.2) mg/dL Magnesium 2.2 (1.6-2.6) mg/dL Total Bilirubin 0.2 (0.0-1.0) mg/dL Direct Bilirubin < 0.2 (0.0-0.5) mg/dL AST 17 (5-37) U/L ALT 13 (0-40) U/L Alkaline Phosphatase 65 (39-117) U/L Troponin I High Sens < 2.7 (<3.5-35.0) ng/L Total Protein 7.3 (6.5-8.0) g/dL Albumin 4.2 (3.5-5.0) g/dL Independent Interpretation I performed an independent interpretation of an: EKG (Sinus rhythm rate of 77 beats per minute) Discharge Plan Discharge Clinical Impression: Acute anxiety Patient Disposition: Home, Self-Care Instructions: Anxiety (ED) Additional Instructions: Workup in the emergency department today was reassuring. This includes your blood work, EKG. I recommend that you do not stop the Lyrica altogether, if you are interested in weaning off hours start taking half a dose and follow-up with your primary doctor. They should be old so help you wean yourself off safely Return for new or worsening symptoms Prescriptions: No Action ibuprofen 800 mg Tablet 800 mg PO BID PRN (Reason: Pain) amitriptyline 10 mg Tablet 10 mg PO BEDTIME Tylenol Extra Strength baclofen 10 mg Tablet 10 mg PO TID prednisone 20 mg tablet 60 mg PO DAILY 5 Days Qty: 15 0RF fluticasone propion-salmeterol [Advair Diskus] 250-50 mcg/dose blister with device 1 inh inhalation Q12H Qty: 60 0RF prednisone 20 mg tablet 20 mg PO DAILY Qty: 5 0RF Pulmicort Flexhaler 180 mcg/actuation aerosol powdr breath activated 2 inh inhalation QAM Qty: 1 0RF lorazepam [Ativan] 1 mg tablet 1 mg PO BEDTIME PRN (Reason: anxiety/sleep) Qty: 14 0RF lorazepam [Ativan] 0.5 mg tablet 1 mg PO BEDTIME PRN (Reason: anxiety) Qty: 28 0RF Interventions: ED Discharge Assessment Last Done: 11/06/22 19:18 Discharge Date/Time: 11/06/22 19:18
--- NOTE | 2022-11-06 17:50 | ECG_ITS ---
Test Reason : anxiety Blood Pressure : / mmHG Vent. Rate : 077 BPM Atrial Rate : 077 BPM P-R Int : 180 ms QRS Dur : 076 ms QT Int : 382 ms P-R-T Axes : 000 156 145 degrees QTc Int : 432 ms Suspect limb lead reversal, interpretation assumes no reversal Normal sinus rhythm Right axis deviation Abnormal ECG When compared with ECG of 17-OCT-2022 23:59, QRS axis Shifted right Referred By: Ericka Tillman Electronically Signed By:REJI VERNON
[2022-11-06 18:11] LABS: MANUAL DIFF FLAG NO
[2022-11-06 18:13] LABS: Basophils Absolute Auto 0.1 X10*3/uL (0.0-0.2); Basophils Percent Auto 1.1 % (0-2); Eosinophils Absolute Auto 0.1 X10*3/uL (0.0-0.4); Eosinophils Percent Auto 1.6 % (0-4); Imm Gran Abs Auto 0.02 X10*3/uL (0.00-0.03); Imm Gran Pct Auto 0.2 % (0.0-0.4); Lymphocytes Absolute Auto 1.6 X10*3/uL (1.2-4.9); Lymphocytes Percent Auto 19.3 % (20-40); Mean Corpuscular HGB Conc 32.4 g/dl (31.0-36.0); Mean Corpuscular Hemoglobin 28.6 pg (27.0-33.0); Mean Corpuscular Volume 88.1 fL (80.0-98.0); Mean Platelet Volume 8.8 fL (9.4-12.4); Neutrophils Absolute Auto 5.3 x10*3/uL (2.0-8.3); Neutrophils Percent Auto 65.8 % (45-73); Platelet Count 462 X10*3/uL (160-400); Red Cell Distribution Width 14.6 % (11.0-16.0); White Blood Count 8.1 X10*3/uL (4.8-10.8)
[2022-11-06 18:27] LABS: Alanine Aminotransferase 13 U/L (0-40); Albumin Level 4.2 g/dL (3.5-5.0); Alkaline Phosphatase 65 U/L (39-117); Anion Gap 13 (12-20); Aspartate Amino Transferase 17 U/L (5-37); Bilirubin Direct < 0.2 mg/dL (0.0-0.5); Bilirubin Total 0.2 mg/dL (0.0-1.0); Blood Urea Nitrogen 17 mg/dL (9-16); Calcium 9.3 mg/dL (8.4-10.2); Carbon Dioxide 25 mmol/L (22-29); Chloride 107 mmol/L (96-108); Creatinine Clr Calc Pharmacy 98.6; Estimated Glomerular Filt Rate > 60; Glucose Random 104 mg/dL (60-115); Magnesium 2.2 mg/dL (1.6-2.6); Potassium 3.9 mmol/L (3.3-5.1); Sodium 141 mmol/L (135-145); Total Protein 7.3 g/dL (6.5-8.0)
[2022-11-06 18:38] LABS: Troponin-I High Sensitivity < 2.7 ng/L (<3.5-35.0)
== END 2022-11-06 19:18 | disposition home or self-care (01) ==
PROVIDERS: Physician Assistant Medical; Emergency Provider Internal Medicine; PCP Nurse Practitioner Family
DX: F41.9 Anxiety disorder, unspecified (principal); R06.02 Shortness of breath; Z87.891 Personal history of nicotine dependence; Z79.899 Other long term (current) drug therapy
CPT/HCPCS: 36415; 80048; 80076; 83735; 84484; 85025; 93005; 99283

== ENCOUNTER 2023-02-19 15:16 | Emergency (ER) | payer OTHER, SELFPAY ==
--- NOTE | ~2023-02-19 | CT_ITS ---
EXAMINATION: CT HEAD WITHOUT CONTRAST CLINICAL INFORMATION: Headache. Vision changes. COMPARISON: CT head from 11/29/2007. TECHNIQUE: Contiguous axial imaging was performed from the skull base to vertex without intravenous administration of contrast. This CT examination was performed using dose optimization techniques as appropriate, variously including the following: *Automated exposure control. *Adjustment of mA and/or kV according to patient size (this includes techniques or standardized protocols for targeted exams where dose is matched to indication/reason for exam; i.e. extremities or head). *Use of iterative reconstruction technique. DLP: 708 mGy-cm FINDINGS: There is no evidence of acute intracranial hemorrhage or edematous territorial infarction. Razo-white matter differentiation is preserved. A few foci of hypoattenuation in the periventricular and deep white matter are consistent with mild microangiopathy. The ventricles are normal in morphology and size. No evidence for obstructive hydrocephalus. No abnormal mass effect or midline shift. No extra-axial fluid collections. No acute soft tissue or osseous abnormalities. Mild mucosal thickening of the paranasal sinuses. The mastoid air cells and middle ear cavities are clear. CT/CT head/brain wo IV con IMPRESSION: 1. No evidence of acute intracranial hemorrhage or edematous territorial infarction. 2. Mild underlying microangiopathy.
[2023-02-19 15:56] VITALS: BP 164/85; PULSE 77; RESP 18; TEMP 36.4; O2SAT 96; BMI 29.9
[2023-02-19 20:06] LABS: MANUAL DIFF FLAG NO
[2023-02-19 20:07] LABS: Basophils Absolute Auto 0.1 X10*3/uL (0.0-0.2); Basophils Percent Auto 0.9 % (0-2); Eosinophils Absolute Auto 0.2 X10*3/uL (0.0-0.4); Eosinophils Percent Auto 3.3 % (0-4); Hematocrit 37.1 % (42.0-52.0); Hemoglobin 12.5 g/dl (14.0-18.0); Imm Gran Abs Auto 0.01 X10*3/uL (0.00-0.03); Imm Gran Pct Auto 0.1 % (0.0-0.4); Lymphocytes Absolute Auto 1.9 X10*3/uL (1.2-4.9); Lymphocytes Percent Auto 28.1 % (20-40); Mean Corpuscular HGB Conc 33.7 g/dl (31.0-36.0); Mean Corpuscular Hemoglobin 28.7 pg (27.0-33.0); Mean Corpuscular Volume 85.3 fL (80.0-98.0); Mean Platelet Volume 10.1 fL (9.4-12.4); Monocytes Absolute Auto 0.8 X10*3/uL (0.1-1.2); Monocytes Percent Auto 11.9 % (2-11); Neutrophils Absolute Auto 3.7 x10*3/uL (2.0-8.3); Neutrophils Percent Auto 55.7 % (45-73); Platelet Count 275 X10*3/uL (160-400); Red Blood Count 4.35 X10*6/uL (4.60-5.80); Red Cell Distribution Width 15.1 % (11.0-16.0); White Blood Count 6.7 X10*3/uL (4.8-10.8)
[2023-02-19 20:23] LABS: Alanine Aminotransferase 13 U/L (0-40); Alkaline Phosphatase 71 U/L (39-117); Anion Gap 16 (12-20); Aspartate Amino Transferase 19 U/L (5-37); Bilirubin Direct < 0.2 mg/dL (0.0-0.5); Bilirubin Total 0.2 mg/dL (0.0-1.0); Blood Urea Nitrogen 22 mg/dL (9-16); Carbon Dioxide 21 mmol/L (22-29); Chloride 113 mmol/L (96-108); Creatinine Clr Calc Pharmacy 98.1; Estimated Glomerular Filt Rate > 60; Glucose Random 94 mg/dL (60-115); Potassium 4.2 mmol/L (3.3-5.1); Sodium 146 mmol/L (135-145)
[2023-02-20 02:36] VITALS: BP 138/87; PULSE 70; RESP 16; TEMP 36.3; O2SAT 97
--- NOTE | 2023-02-20 04:06 | MHC.EDTECH ---
Pt not in room when i went in to do vitals. Will continue to look for pt. Possible elopement.
[2023-02-20 04:30] VITALS: BP 148/77; PULSE 65; RESP 16; O2SAT 98
--- NOTE | 2023-02-20 05:09 | ED_ITS ---
HPI - Eye Problem General Chief complaint: Eye Problems Stated complaint: blurred vision L eye, headache Time Seen by Provider: 02/20/23 04:12 Source: patient Mode of arrival: ambulatory History of Present Illness HPI Narrative: 62-year-old male who for the past 4-5 days has been experiencing a line an his left eye vision that he only notices when he moves his eye back and forth, there is no pain on eye movement and there has been no acuity changes. Patient denies any injury to the eye and states he is not able to determine whether not it is a vertical or horizontal line as it just appears like a small area blurriness. [facility] and [facility] told [facility] to come [facility]. Related Data Home Medications Medication Instructions Recorded Confirmed Tylenol Extra Strength 11/14/20 amitriptyline 10 mg tablet 10 mg PO BEDTIME 11/14/20 11/14/20 baclofen 10 mg tablet 10 mg PO TID 11/14/20 11/14/20 ibuprofen 800 mg tablet 800 mg PO BID PRN Pain 11/14/20 11/14/20 Previous Rx's Medication Instructions Recorded prednisone 20 mg tablet 60 mg (3 x 20 mg) PO DAILY 5 days 05/14/21 #15 tabs budesonide 180 mcg/actuation 2 inh inhalation QAM #1 ea 07/21/22 breath activated powder inhaler (Pulmicort Flexhaler) fluticasone 250 mcg-salmeterol 50 1 inh inhalation Q12H #60 ea 07/21/22 mcg/dose blistr powdr for inhalation (Advair Diskus) prednisone 20 mg tablet 20 mg PO DAILY #5 tabs 07/21/22 lorazepam 0.5 mg tablet (Ativan) 1 mg (2 x 0.5 mg) PO BEDTIME PRN 10/18/22 anxiety #28 tabs lorazepam 1 mg tablet (Ativan) 1 mg PO BEDTIME PRN anxiety/sleep 10/18/22 #14 tabs Allergies Allergy/AdvReac Type Severity Reaction Status Date / Time No Known Allergies Allergy Verified 10/17/22 23:09 Review of Systems 2 Review of Systems: Pertinent positives and negatives as stated in HPI [facility] Past Medical History Source: nursing notes reviewed Onset Date is defined in the Problem List Problems that require an onset date and time if occurred within 24 hrs of arrival to the ED Aortic Dissection and Rupture; Neurologic impairment; Cardiopulmonary Arrest; Endotracheal Intubation; Insertion or Replacement of Mechanical Circulatory Assist Device Medical History Chronic neck pain Depression Chronic back pain Hepatitis C Surgical History History of back surgery Hx of oral surgery History of removal of cyst Hx of eye surgery Hx of colonoscopy Social History Social History Alcohol intake: never Patient Tobacco Use Status: Former Tobacco user Tobacco use type: Cigarette Advance Directives: No Advance Directives Information Provided: No Physical Exam 2 Vital Signs: Vital Signs: Last Vital Signs Temp 97.4 F 02/20/23 02:36 Pulse 65 02/20/23 04:30 Resp 16 02/20/23 04:30 BP 148/77 H 02/20/23 04:30 Pulse Ox 98 02/20/23 04:30 O2 Del Method Room Air 02/20/23 04:30 BMI result Body Mass Index 29.9 VITAL SIGNS: Reviewed. GENERAL: Well developed, well nourished, in no acute distress. HEAD: Normocephalic/atraumatic EYES: PERRLA, EOMI intact without pain, no nystagmus/pallor/icterus noted, there is no conjunctival injection, there is no corneal clouding, on bedside ultrasound I do not appreciate any evidence to suggest detached retina EARS: Ext canals without abnormality NOSE: Nares patent bilateral OROPHARYNX: no oral lesions noted, posterior pharynx clear NECK: Supple, no adenopathy LUNGS: Normal breath sounds. No adventitious sounds or accessory muscle use. SpO2<98> CARDIOVASCULAR: Regular rate and rhythm without noted murmurs ABDOMEN: Soft, non-tender, non-distended with bowel sounds. MUSCULOSKELETAL: No tenderness, deformities, or effusions noted on gross inspection. EXTREMITIES: No cyanosis, clubbing or edema. SKIN: Inspection of the skin reveals no rashes NEUROLOGIC: Alert and oriented x 4. Strength and sensation to light touch were grossly intact x 4. Medical Decision Making Medical Decision Making MDM Narrative: 62-year-old male with history and clinical presentation, DDX: Retinal detachment, corneal abrasion felt to be less likely with the absence of trauma or exposure to particulate matter, no concern for HSV, pinkeye, stye and no concern for acute angle glaucoma. I reviewed all investigations and hematologic indices are chronically stable without leukocytosis or left shift and there is a stable normocytic anemia no thrombocytopenia. Chemistry indices are negative for JUNIOR there is however a noted elevation of the sodium and chloride but otherwise no liver enzyme derangements. After bedside ultrasound my assessment is that patient may have something ongoing with the lens or cornea that has not been identified and he was strongly encouraged to follow-up with an lead android developer or line appliance assembler. I will provide him with a referral to follow-up with Dr. Cantor and he is otherwise discharged. Differential Diagnosis Differential Diagnoses: The differential diagnosis associated with the presentation includes Please see the discussion above Admission/Observation Consideration of admission/observation: Escalation of care including admission/observation considered Please see the discussion above Lab Data MDM Lab Attestation statement: I reviewed the patient's lab results. Please see the discussion above 02/19/23 20:00 02/19/23 20:00 Labs: Lab Results 02/19/23 Range/Units 20:00 WBC 6.7 (4.8-10.8) X10*3/uL RBC 4.35 L (4.60-5.80) X10*6/uL Hgb 12.5 L (14.0-18.0) g/dl Hct 37.1 L (42.0-52.0) % MCV 85.3 (80.0-98.0) fL MCH 28.7 (27.0-33.0) pg MCHC 33.7 (31.0-36.0) g/dl RDW 15.1 (11.0-16.0) % Plt Count 275 D (160-400) X10*3/uL MPV 10.1 (9.4-12.4) fL Immature Gran % (Auto) 0.1 (0.0-0.4) % Neut % (Auto) 55.7 (45-73) % Lymph % (Auto) 28.1 (20-40) % [place] % (Auto) 11.9 H (2-11) % Eos % (Auto) 3.3 (0-4) % Baso % (Auto) 0.9 (0-2) % Lymph # (Auto) 1.9 (1.2-4.9) X10*3/uL [place] # (Auto) 0.8 (0.1-1.2) X10*3/uL Eos # (Auto) 0.2 (0.0-0.4) X10*3/uL Baso # (Auto) 0.1 (0.0-0.2) X10*3/uL Abs Immat Gran (auto) 0.01 (0.00-0.03) X10*3/uL Absolute Neuts (auto) 3.7 (2.0-8.3) x10*3/uL Absolute Nucleated RBC 0.000 (0.0-0.012) X10*3/uL Nucleated RBC % (auto) 0.0 (0.0-0.2) /100WBC Sodium 146 H (135-145) mmol/L Potassium 4.2 (3.3-5.1) mmol/L Chloride 113 H (96-108) mmol/L Carbon Dioxide 21 L (22-29) mmol/L Anion Gap 16 (12-20) BUN 22 H (9-16) mg/dL Creatinine 0.90 (0.5-1.4) mg/dL Estim Creat Clear Calc 98.1 Estimated GFR > 60 Random Glucose 94 (60-115) mg/dL Calcium 9.0 (8.4-10.2) mg/dL Magnesium 2.0 (1.6-2.6) mg/dL Total Bilirubin 0.2 (0.0-1.0) mg/dL Direct Bilirubin < 0.2 (0.0-0.5) mg/dL AST 19 (5-37) U/L ALT 13 (0-40) U/L Alkaline Phosphatase 71 (39-117) U/L Total Protein 7.0 (6.5-8.0) g/dL Albumin 4.0 (3.5-5.0) g/dL Discharge Plan Discharge Clinical Impression: Abnormal peripheral vision of left eye Patient Disposition: Home, Self-Care Instructions: Visual Floaters (ED) Additional Instructions: 1. I have provided you with a referral to follow-up with the line appliance assembler that is associated with [facility], however you can go to any line appliance assembler or lead android developer of your choosing. Please return to the ER for any worsening symptoms. Prescriptions: No Action ibuprofen 800 mg Tablet 800 mg PO BID PRN (Reason: Pain) amitriptyline 10 mg Tablet 10 mg PO BEDTIME Tylenol Extra Strength baclofen 10 mg Tablet 10 mg PO TID prednisone 20 mg tablet 60 mg PO DAILY 5 Days Qty: 15 0RF fluticasone propion-salmeterol [Advair Diskus] 250-50 mcg/dose blister with device 1 inh inhalation Q12H Qty: 60 0RF prednisone 20 mg tablet 20 mg PO DAILY Qty: 5 0RF Pulmicort Flexhaler 180 mcg/actuation aerosol powdr breath activated 2 inh inhalation QAM Qty: 1 0RF lorazepam [Ativan] 1 mg tablet 1 mg PO BEDTIME PRN (Reason: anxiety/sleep) Qty: 14 0RF lorazepam [Ativan] 0.5 mg tablet 1 mg PO BEDTIME PRN (Reason: anxiety) Qty: 28 0RF Referrals: Leonardo Cantor [Physician] -
== END 2023-02-20 05:38 | disposition home or self-care (01) ==
PROVIDERS: Physician Assistant Medical; Emergency Provider Student in an Organized Health Care Education/Training Program
DX: H53.8 Other visual disturbances (principal); R51.9 Headache, unspecified; B19.20 Unspecified viral hepatitis C without hepatic coma; Z87.891 Personal history of nicotine dependence; Z79.899 Other long term (current) drug therapy
CPT/HCPCS: 36415; 70450; 80048; 80076; 83735; 85025; 99283; 99284

== ENCOUNTER 2023-06-18 11:40 | Day surgery (SDC) | payer MEDICARE, SELFPAY ==
[2023-06-14 14:31] VITALS: BMI 29.5
--- NOTE | 2023-06-14 15:11 | P.CONAN_ITS ---
Documented by User: Carolyn Duarte NP 06/14/23 15:11 HPI - Anesthesia Eval Consult details Narrative: 63yo M for Upper Endoscopy and Colonoscopy FORMERLY [facility] Past Medical History Medical History (Updated 06/14/23 @ 14:26 by Alfreda Devries RN) Barretts esophagus Chronic neck pain Depression Chronic back pain Hepatitis C Family History Family history of problems with anesthesia: No Surgical History Surgical History (Updated 06/14/23 @ 14:26 by Alfreda Devries RN) History of esophagogastroduodenoscopy (EGD) History of back surgery Hx of oral surgery History of removal of cyst Hx of eye surgery Hx of colonoscopy History of Problems with Anesthesia: No Social History Social History Alcohol intake: never Patient Tobacco Use Status: Former Tobacco user Tobacco use type: Cigarette Use of substances other than those prescribed or required for medical reasons: No Advance Directives: No Advance Directives Information Provided: Yes Advance Directives on File: No Meds Allergies Allergy/AdvReac Type Severity Reaction Status Date / Time No Known Allergies Allergy Verified 06/18/23 11:58 Home Medications ?Medication ?Instructions ?Recorded ?Confirmed ?Last Taken ?Type amitriptyline 10 mg tablet 10 mg PO BEDTIME 11/14/20 06/18/23 06/18/23 History baclofen 10 mg tablet 10 mg PO TID 11/14/20 06/18/23 06/18/23 History ibuprofen 800 mg tablet 800 mg PO BID PRN Pain 11/14/20 06/14/23 Unknown History cetirizine 10 mg tablet 10 mg PO DAILY 06/14/23 06/14/23 Unknown History gabapentin 100 mg capsule 100 mg PO DAILY 06/14/23 06/18/23 06/18/23 History omeprazole 20 mg capsule,delayed 20 mg PO DAILY 06/14/23 06/14/23 Unknown History release Exam Height,Weight and Vital Signs: Height 5 ft 8 in Weight 87.997 kg Assessment and Plan Assessment Anesthesia Assessment: Chart Reviewed Final Anesthetic Review Family History of Problems with Anesthesia: No History of Problems with Anesthesia: No Documented by User: Maryanne Khan MD 06/18/23 12:49 PMFSH Past Medical History Medical History (Updated 06/14/23 @ 14:26 by Alfreda Devries RN) Barretts esophagus Chronic neck pain Depression Chronic back pain Hepatitis C Surgical History Surgical History (Updated 06/14/23 @ 14:26 by Alfreda Devries RN) History of esophagogastroduodenoscopy (EGD) History of back surgery Hx of oral surgery History of removal of cyst Hx of eye surgery Hx of colonoscopy Social History Social History Alcohol intake: never Patient Tobacco Use Status: Former Tobacco user Tobacco use type: Cigarette Use of substances other than those prescribed or required for medical reasons: No Advance Directives: No Advance Directives Information Provided: Yes Advance Directives on File: No Meds Allergies Allergy/AdvReac Type Severity Reaction Status Date / Time No Known Allergies Allergy Verified 06/18/23 11:58 Home Medications ?Medication ?Instructions ?Recorded ?Confirmed ?Last Taken ?Type amitriptyline 10 mg tablet 10 mg PO BEDTIME 11/14/20 06/18/23 06/18/23 History baclofen 10 mg tablet 10 mg PO TID 11/14/20 06/18/23 06/18/23 History ibuprofen 800 mg tablet 800 mg PO BID PRN Pain 11/14/20 06/14/23 Unknown History cetirizine 10 mg tablet 10 mg PO DAILY 06/14/23 06/14/23 Unknown History gabapentin 100 mg capsule 100 mg PO DAILY 06/14/23 06/18/23 06/18/23 History omeprazole 20 mg capsule,delayed 20 mg PO DAILY 06/14/23 06/14/23 Unknown History release Exam Airway Mallampati Class: III TM Dist: >3cm Neck ROM: Full Assessment and Plan Assessment Anesthesia Assessment: Anesthesia Plan Discussed Final Anesthetic Review NPO: Yes ASA Class: II Final Preanesthetic Review: No Changes in Pt Med Stat, Meds/Allgs Chart Reviewed, Consent Obtained/Reviewed and Anes Risks/Benef Reviewed Patient Risk: Intermediate Procedure Risk: Low Anesthetic Plan Anesthetic Plan: TIVA Disposition: Standard PACU
[2023-06-18 12:23] VITALS: BP 133/90; PULSE 78; RESP 16; TEMP 36.6; O2SAT 98
[2023-06-18] MEDS: Lactated Ringers 1,000 ML 100 ML IVCONT (12:29)
--- NOTE | 2023-06-18 13:27 | MHC.SHP ---
Pre-Procedural Eval Section A - 24 Hr Update-Section A only Date of Service: 06/18/23 The patient is an INPATIENT: No Changes since office visit: No Cold of Flu in the past 2 weeks, No New Medical Problems, No Changes in Medication and No Patient answered all questions The patient has been examined within 24 hours of the surgical procedure. The History & Physical has been completed within 30 days and I have reviewed it.: Yes Section B - Complete if H&P > 30 days Chief Complaint: Cedeño's esophagus without dysplasia,screening Allergies: Allergies Allergy/AdvReac Type Severity Reaction Status Date / Time No Known Allergies Allergy Verified 06/18/23 11:58 Plan I have reviewed the history and physical and performed a pertinent physical examination on my patient. No changes have occurred unless specified. Time Spent With Patient Time: Total time managing care of this patient today ____ minutes.
[2023-06-18 14:12] VITALS: BP 116/67; PULSE 65; RESP 16; TEMP 36.4; O2SAT 95
[2023-06-18 14:27] VITALS: BP 125/81; PULSE 59; RESP 16; TEMP 36.4; O2SAT 98
--- NOTE | 2023-06-18 14:35 | OP_ITS ---
DATE OF SERVICE: 06/18/2023 SURGEON: Tod Galdamez MD INDICATIONS: 1. Cedeño esophagus. 2. Colon cancer screening. PREOPERATIVE DIAGNOSIS: POSTOPERATIVE DIAGNOSIS: PROCEDURE PERFORMED: ESTIMATED BLOOD LOSS: COMPLICATIONS: ANESTHESIA: Monitored anesthesia care. ASSISTANTS: SPECIMENS: PROCEDURES PERFORMED: Upper endoscopy with biopsy, colonoscopy to the terminal ileum. DESCRIPTION OF PROCEDURE: A history and physical was performed. The risks and benefits of the procedure were explained to the patient and informed consent was obtained. The patient was placed in the left lateral decubitus position. The Olympus video gastroscope was introduced into the esophagus, stomach, and duodenum. Examination was performed and the scope was removed. He was repositioned for colonoscopy. A digital rectal exam was performed and was found to be normal. The Olympus pediatric video colonoscope was introduced into the rectum and advanced to the cecum. The cecum was identified by transillumination, palpation, and identification of the ileocecal valve. Examination was performed and the scope was removed. He tolerated both procedures well and was returned to recovery area in stable condition. FINDINGS: Upper endoscopy, esophagus: The esophagus showed an irregular EG junction. This was biopsied. Stomach: The stomach was normal. Duodenum: The bulb and 2nd portion were normal. Colonoscopy: The terminal ileum was normal. The visualized colonic mucosa was normal. There was some stool in the right colon, limiting the sensitivity examination for detection of small polyps. No polyps were identified. There was mild diverticulosis. Retroflexed examination showed small internal hemorrhoids. IMPRESSION: 1. Cedeño esophagus. 2. Normal colonoscopy. RECOMMENDATIONS: 1. Follow up the biopsy results. 2. Repeat colonoscopy is recommended in 10 years for average-risk individuals. MD MARCELA Arreola/JORI / [id number] MTDD
== END 2023-06-18 15:08 | disposition home or self-care (01) ==
PROVIDERS: Visit Provider Internal Medicine Gastroenterology
PROC: (CPT 43239; principal; 2023-06-18 14:00)
DX: Z12.11 Encounter for screening for malignant neoplasm of colon (principal); K57.30 Diverticulosis of large intestine without perforation or abscess without bleeding; K64.8 Other hemorrhoids; Z86.010 Personal history of colon polyps; K22.70 Barrett's esophagus without dysplasia; Z79.899 Other long term (current) drug therapy
CPT/HCPCS: 43239; G0105; 88305; 88313; J1596; J2704

== ENCOUNTER 2023-08-04 13:11 | Emergency (ER) | payer MEDICARE, SELFPAY ==
--- NOTE | ~2023-08-04 | XR_ITS ---
EXAMINATION: XR CHEST CLINICAL INFORMATION: Pneumonia. COMPARISON: Chest radiograph dated 10/13/2022. TECHNIQUE: 2 views of the chest were obtained. FINDINGS: The lungs are clear. The cardiomediastinal silhouette is normal in size. There is no pleural effusion or pneumothorax. No acute osseous abnormality. XR/XR chest 2V IMPRESSION: No acute cardiopulmonary findings.
[2023-08-04 13:12] VITALS: BP 169/74; PULSE 100; RESP 19; TEMP 36.6; O2SAT 97; BMI 28.1
--- NOTE | 2023-08-04 13:14 | ED.GENADULT ---
HPI - General Adult General Chief complaint: General Medical Stated complaint: lethargic Time Seen by Provider: 08/04/23 14:38 Source: patient Mode of arrival: ambulatory Limitations: no limitations History of Present Illness ED Provider: Dr. Deng Puentes HPI narrative: 63-year-old male who presents emergency department for evaluation of subjective fever, chills, lethargy, headache and orange colored urine. The patient states he was fishing several weeks prior and believes that he may have gotten a tick bite. States that 2 weeks prior he did notice a rash on his back and he was started on doxycycline 100 mg twice a day for 7 days. States he completed this course of medications in his not feeling better. The patient denied myalgias arthralgias. He denied sore throat, cough, chest pain, shortness of breath, dyspnea on exertion. He denied nausea, vomiting or diarrhea. 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 The patient did have hepatitis-C and was successfully treated with oral medications. Related Data Home Medications ?Medication ?Instructions ?Recorded ?Confirmed amitriptyline 10 mg tablet 10 mg PO BEDTIME 11/14/20 06/18/23 baclofen 10 mg tablet 10 mg PO TID 11/14/20 06/18/23 ibuprofen 800 mg tablet 800 mg PO BID PRN Pain 11/14/20 06/14/23 cetirizine 10 mg tablet 10 mg PO DAILY 06/14/23 06/14/23 gabapentin 100 mg capsule 100 mg PO DAILY 06/14/23 06/18/23 omeprazole 20 mg capsule,delayed 20 mg PO DAILY 06/14/23 06/14/23 release Previous Rx's ?Medication ?Instructions ?Recorded budesonide 180 mcg/actuation 2 inh inhalation QAM #1 ea 07/21/22 breath activated powder inhaler (Pulmicort Flexhaler) fluticasone 250 mcg-salmeterol 50 1 inh inhalation Q12H #60 ea 07/21/22 mcg/dose blistr powdr for inhalation (Advair Diskus) lorazepam 0.5 mg tablet (Ativan) 1 mg (2 x 0.5 mg) PO BEDTIME PRN 10/18/22 anxiety #28 tabs doxycycline hyclate 100 mg tablet 100 mg PO Q12H 21 days #42 tabs 08/04/23 Allergies Allergy/AdvReac Type Severity Reaction Status Date / Time No Known Allergies Allergy Verified 08/04/23 13:16 Review of Systems Review of Systems: Yes all other systems are reviewed and are negative [facility] Past Medical History [facility] Narrative: Social history: He denies tobacco use. He denies alcohol use. He denies drug use. Medical History (Updated 08/04/23 @ 15:25 by Deng Puentes MD) Barretts esophagus Chronic neck pain Depression Chronic back pain Hepatitis C Surgical History (Updated 06/14/23 @ 14:26 by Alfreda Devries RN) History of esophagogastroduodenoscopy (EGD) History of back surgery Hx of oral surgery History of removal of cyst Hx of eye surgery Hx of colonoscopy Social History Social History Alcohol intake: never Patient Tobacco Use Status: Former Tobacco user Tobacco use type: Cigarette Smoked in Last 30 Days: No Use of substances other than those prescribed or required for medical reasons: No Advance Directives: No Advance Directives Information Provided: Yes Physical Exam ED Vital Signs: Vital Signs - 24 hr 08/04/23 13:12 08/04/23 15:16 Temperature 98 F 98.7 F Pulse Rate 100 103 H Respiratory Rate 19 18 Blood Pressure 169/74 H 141/83 H Pulse Oximetry 97 96 Oxygen Delivery Method Room Air BMI result Body Mass Index 28.1 Vital signs revealed an elevated blood pressure of 169/74 otherwise were unremarkable Exam: General: Awake, alert in no distress Head: Normocephalic, atraumatic EENT: PERRL, Lids normal, sclera normal, conjunctiva normal, nose normal , ears normal, throat without erythema or exudates Neck: Supple, no adenopathy Lung: breath sounds symmetric, no wheezing, rales or rhonchi Chest: symmetric movement, nontender Heart: regular rate and rhythm, normal S1, S2 no murmurs or rubs Abdomen: soft, non-tender, nondistended, normal bowel sounds Back: no vertebral tenderness, no CVAT Extremities: no deformities, moves all extremities symmetrically Neuro: Awake, alert, oriented, normal speech, cranial nerves intact, moves all extremities symmetrically Psych: Pleasant, cooperative Course Course Course Narrative: This is a Rapid Medical Examination (RME) performed by Amy Boswell PA-C in triage. Full HPI, ROS, assessment and treatment plan per primary provider in the Main ED. 63 yo male here with increased fatigue, joint pain, and overall feeling unwell x1 week. no known sick contacts. reports tick bite 2 weeks ago with target lesion to back. his friend who is an MD ordered 1 week of doxy which he he has since completed. reports associated orange urine and chills/sweats. denies chest pain, palpitations, sob, calf tenderness. no visible rashes in triage. Plan: labs, UA, tick bourne panel, lyme testing Medications Administered Discontinued Medications Generic Name Dose Route Start Last Admin Trade Name Freq PRN Reason Stop Dose Admin Doxycycline Monohydrate 100 mg 08/04/23 15:20 08/04/23 15:33 Doxycycline Monohydrate 100 Mg Capsule PO 08/04/23 15:21 100 mg ONCE ONE Administration Medical Decision Making Medical Decision Making MDM Narrative: 67-year-old male with a history of Cedeño's esophagitis, chronic back pain, depression, [id number] treated who presents emergency department for evaluation of fever, chills, lethargy and rash with possible tick bite exposure 2-3 weeks prior. Patient did complete a 7 day course of doxycycline with no improvement of his symptoms. Vital signs did reveal an elevated blood pressure otherwise was unremarkable. Physical examination was unremarkable. Differential diagnosis: ?Includes but is not limited to anaplasmosis, Lyme disease, babesiosis, other tick-borne illness, recurrence of hepatitis-C, viral infection, anemia, electrolyte abnormalities Following evaluation was ordered: CBC, CMP, magnesium, tick-borne illness panel, COVID-19, influenza, RSV, urinalysis, chest x-ray two view Patient was initially treated with the following: Doxycycline 100 mg orally Course: 15:38 My interpretation patient's laboratory evaluation as follows: WBC low 3100. Anemia with an H&H of 9.6 and 28. Low platelet count 32839. These hematology labs are significantly different compared to 02/19/2023 when the patient's WBC was 6200, H&H 13.5 and 37 0.1 and platelet count of [id number] Elevated glucose 124. Elevated AST 49. Patient's two view chest x-ray was unremarkable pain Given the leukocytosis, anemia , thrombocytosis and slight elevation in his AST I suspect that the patient has anaplasmosis. It has also possible the patient may have to tick-borne illnesses at the same time. I do not think that this hepatitis-C however I did add hepatitis-C antigen with reflex panel to his labs to make sure that does not have recurrence of his hepatitis-C he has the cause of his symptoms. The patient will be treated with a 21 day course of doxycycline 100 mg every 12 hours. I did tell the patient that needs to complete the full 21 day course even if all of the tick-borne illness panels are negative. He was given printed and verbal instructions and discharged home. Admission/Observation Consideration of admission/observation: Escalation of care including admission/observation considered Lab Data MDM Lab Attestation statement: I reviewed the patient's lab results. 08/04/23 13:56 08/04/23 13:56 Labs: Lab Results 08/04/23 08/04/23 Range/Units 13:56 15:31 WBC 3.1 L (4.8-10.8) X10*3/uL RBC 3.33 L D (4.60-5.80) X10*6/uL Hgb 9.6 L D (14.0-18.0) g/dl Hct 28.3 L D (42.0-52.0) % MCV 85.0 (80.0-98.0) fL MCH 28.8 (27.0-33.0) pg MCHC 33.9 (31.0-36.0) g/dl RDW 16.7 H (11.0-16.0) % Plt Count 84 L D (160-400) X10*3/uL MPV 11.6 (9.4-12.4) fL Immature Gran % (Auto) 0.3 (0.0-0.4) % Neut % (Auto) 49.7 (45-73) % Lymph % (Auto) 36.3 (20-40) % [place] % (Auto) 13.4 H (2-11) % Eos % (Auto) 0.0 (0-4) % Baso % (Auto) 0.3 (0-2) % Lymph # (Auto) 1.1 L (1.2-4.9) X10*3/uL [place] # (Auto) 0.4 (0.1-1.2) X10*3/uL Eos # (Auto) 0.0 (0.0-0.4) X10*3/uL Baso # (Auto) 0.0 (0.0-0.2) X10*3/uL Abs Immat Gran (auto) 0.01 (0.00-0.03) X10*3/uL Absolute Neuts (auto) 1.5 L (2.0-8.3) x10*3/uL Absolute Nucleated RBC 0.000 (0.0-0.012) X10*3/uL Nucleated RBC % (auto) 0.0 (0.0-0.2) /100WBC Smear Tech's Comments VERIFIED Sodium 139 (135-145) mmol/L Potassium 4.0 (3.3-5.1) mmol/L Chloride 106 (96-108) mmol/L Carbon Dioxide 24 (22-29) mmol/L Anion Gap 13 (12-20) BUN 17 H (9-16) mg/dL Creatinine 0.81 (0.5-1.4) mg/dL Estim Creat Clear Calc 101.5 Estimated GFR > 60 Random Glucose 124 H (60-115) mg/dL Calcium 8.6 (8.4-10.2) mg/dL Magnesium 1.8 (1.6-2.6) mg/dL Total Bilirubin 0.6 (0.0-1.0) mg/dL AST 49 H (5-37) U/L ALT 33 (0-40) U/L Alkaline Phosphatase 69 (39-117) U/L Total Protein 6.7 (6.5-8.0) g/dL Albumin 3.4 L (3.5-5.0) g/dL Lipase 68 (8-78) U/L Urine Color Yellow Urine Appearance Clear Urine pH 6.0 (5.0-9.0) Ur Specific [place] 1.020 (1.005-1.025) Urine Protein 30 (1+) H (Neg-Trace) mg/dL Urine Glucose (UA) Negative (Negative) mg/dL Urine Ketones Negative (Negative) mg/dL Urine Blood Negative (Negative) Urine Nitrite Negative (Negative) Ur Leukocyte Esterase Negative (Negative) Influenza Type A (PCR) NEGATIVE (Negative) Influenza Type B (PCR) NEGATIVE (Negative) RSV RNA Qual (PCR) NEGATIVE (Negative) SARS-CoV-2 RNA (RT-PCR) NEGATIVE (Negative) Independent Interpretation I performed an independent interpretation of an: Plain X-Ray Interpretation: My interpretation patient's two view chest x-ray is as follows: No acute disease Radiology Impression Discussion of test interpretation with radiology: I have reviewed the radiologist's reading. Radiologist Impression: XR chest 2V IMPRESSION: No acute cardiopulmonary findings. Dictated By: Albert Blue MD Prescription Management I considered prescription management with: Antibiotic Discharge Plan Discharge Clinical Impression: Anaplasmosis, At high risk for tick borne illness Patient Disposition: Home, Self-Care Instructions: Lyme Disease (ED) Additional Instructions: Your blood work today revealed a low white blood cell count, a low platelet count and a very slight elevation in one of your liver tests. These findings often go along with a tick-borne illness called anaplasmosis. Sometimes you can have more than 1 tick-borne illness and I am concerned that you may have both anaplasmosis and Lyme disease. I did test your blood for these tick-borne illnesses and several other tick-borne illnesses. The treatment for anaplasmosis and Lyme disease is the same except you have to take the medications for a longer period of time to completely treat Lyme disease. Take doxycycline 100 mg every 12 hours for 3 weeks (21 days). Make sure you complete the 3 week course even if all of your tick-borne illness tests are normal. These tests are not 100% sensitive and can sometimes be negative when you still have the illness. I also tested your blood for hepatitis-C antibody. You will need to follow-up with your doctor to check the tick-borne illness test as well as the hepatitis-C test. Please return to the emergency department if your symptoms get worse or if you develop any symptoms that are concerning to you. Prescriptions: New doxycycline hyclate 100 mg tablet 100 mg PO Q12H 21 Days Qty: 42 0RF No Action ibuprofen 800 mg Tablet 800 mg PO BID PRN (Reason: Pain) amitriptyline 10 mg Tablet 10 mg PO BEDTIME baclofen 10 mg Tablet 10 mg PO TID fluticasone propion-salmeterol [Advair Diskus] 250-50 mcg/dose blister with device 1 inh inhalation Q12H Qty: 60 0RF Pulmicort Flexhaler 180 mcg/actuation aerosol powdr breath activated 2 inh inhalation QAM Qty: 1 0RF lorazepam [Ativan] 0.5 mg tablet 1 mg PO BEDTIME PRN (Reason: anxiety) Qty: 28 0RF cetirizine 10 mg tablet 10 mg PO DAILY omeprazole 20 mg capsule,delayed release(DR/EC) 20 mg PO DAILY gabapentin 100 mg Capsule 100 mg PO DAILY Print Language: Chinese
[2023-08-04 14:07] LABS: Basophils Percent Auto 0.3 % (0-2); Hematocrit 28.3 % (42.0-52.0); Hemoglobin 9.6 g/dl (14.0-18.0); Imm Gran Abs Auto 0.01 X10*3/uL (0.00-0.03); Imm Gran Pct Auto 0.3 % (0.0-0.4); Lymphocytes Absolute Auto 1.1 X10*3/uL (1.2-4.9); Lymphocytes Percent Auto 36.3 % (20-40); MANUAL DIFF FLAG SCAN; Mean Corpuscular HGB Conc 33.9 g/dl (31.0-36.0); Mean Corpuscular Hemoglobin 28.8 pg (27.0-33.0); Monocytes Absolute Auto 0.4 X10*3/uL (0.1-1.2); Monocytes Percent Auto 13.4 % (2-11); Neutrophils Absolute Auto 1.5 x10*3/uL (2.0-8.3); Neutrophils Percent Auto 49.7 % (45-73); Red Blood Count 3.33 X10*6/uL (4.60-5.80); Red Cell Distribution Width 16.7 % (11.0-16.0); SCAN SMEAR FLAG 1; White Blood Count 3.1 X10*3/uL (4.8-10.8)
[2023-08-04 14:22] LABS: Alanine Aminotransferase 33 U/L (0-40); Albumin Level 3.4 g/dL (3.5-5.0); Alkaline Phosphatase 69 U/L (39-117); Anion Gap 13 (12-20); Aspartate Amino Transferase 49 U/L (5-37); Bilirubin Total 0.6 mg/dL (0.0-1.0); Blood Urea Nitrogen 17 mg/dL (9-16); Calcium 8.6 mg/dL (8.4-10.2); Carbon Dioxide 24 mmol/L (22-29); Chloride 106 mmol/L (96-108); Creatinine Clr Calc Pharmacy 101.5; Estimated Glomerular Filt Rate > 60; Glucose Random 124 mg/dL (60-115); Lipase 68 U/L (8-78); Magnesium 1.8 mg/dL (1.6-2.6); Sodium 139 mmol/L (135-145); Total Protein 6.7 g/dL (6.5-8.0)
[2023-08-04 14:33] LABS: Mean Platelet Volume 11.6 fL (9.4-12.4); Platelet Count 84 X10*3/uL (160-400)
[2023-08-04 14:34] LABS: SLIDE REVIEW VERIFIED
[2023-08-04 15:03] LABS: Influenza A PCR NEGATIVE (Negative); Influenza B PCR NEGATIVE (Negative); Resp Syncy Virus RNA Qual PCR NEGATIVE (Negative); SARS COV2 PCR INHOUSE NEGATIVE (Negative)
[2023-08-04 15:16] VITALS: BP 141/83; PULSE 103; RESP 18; TEMP 37.1; O2SAT 96
--- NOTE | 2023-08-04 15:17 | PC.NURSE ---
Pt alert and oriented. states fatigue, lethargy, chills and sweats x last 4-5 days. Recently treated for a tick borne illness with Doxy x 7 days, reports rash on back that has resolved. Per Dr Puentes, longer abx course needed. Plan to add Hep C test and PO Doxy. Pt speaking full sentences, steady on feet. Skin pwd.
[2023-08-04] MEDS: Doxycycline Monohydrate 100 MG CAPSULE PO (15:33)
[2023-08-04 15:36] LABS: Appearance Urine Clear; Color Urine Yellow; Glucose Urine UA Negative (Negative); Leukocyte Esterase Urine Negative (Negative); Nitrite Urine Negative (Negative); UMIC TRIGGER UACC YES; Urine Blood Negative (Negative); Urine Ketones Negative (Negative); Urine Protein 30 (1+) mg/dL (Neg-Trace)
[2023-08-04 15:53] LABS: Bacteria Urine None Seen (None Seen); RBC Urine 0-2 /HPF (0-2); Squamous Epithelial Cell Urine 0-2 /HPF (0-2); WBC Urine 0-5 /HPF (0-5)
[2023-08-04 16:10] VITALS: BP 141/83; PULSE 103; RESP 18; TEMP 37.1; O2SAT 96
[2023-08-05 03:45] LABS: ~HepC Num1 10.28 S/CO (0.00-0.79); ~Hepatitis C Antibody Reactive (Nonreactive)
[2023-08-05 21:39] LABS: Lyme Abs Screen <0.90 index
[2023-08-06 23:13] LABS: A. Phagocytphilium DNA,RT-PCR NOT DETECTED (NOT DETECTED); Babesia Microti DNA, RT-PCR DETECTED (NOT DETECTED); Borrelia Miyamotoi,DNA RT-PCR NOT DETECTED (NOT DETECTED); E.Chaffeensis DNA RT-PCR NOT DETECTED (NOT DETECTED); Lyme(Borrelia ssp)DNA RT-PCR NOT DETECTED (NOT DETECTED)
== END 2023-08-04 16:11 | disposition home or self-care (01) ==
PROVIDERS: Physician Assistant Medical; Emergency Provider Emergency Medicine Emergency Medical Services; PCP Nurse Practitioner Family
DX: A79.82 Anaplasmosis [A. phagocytophilum] (principal); B60.00 Babesiosis, unspecified; B19.20 Unspecified viral hepatitis C without hepatic coma; Z03.818 Encounter for observation for suspected exposure to other biological agents ruled out
CPT/HCPCS: 0241U; 36415; 71046; 80053; 81001; 83690; 83735; 85025; 86617; 86618; 86803; 87468; 87469; 87478; 87484; 87798; 99283; 99284

== ENCOUNTER 2023-08-07 08:43 | Emergency (ER) | payer MEDICARE, SELFPAY ==
--- NOTE | ~2023-08-07 | XR_ITS ---
EXAMINATION: XR CHEST CLINICAL INFORMATION: Cough. COMPARISON: Chest radiograph 08/04/2023. TECHNIQUE: 2 views of the chest were obtained. FINDINGS: Normal appearance of the cardiomediastinal silhouette. No focal consolidation, pleural effusion or pneumothorax. No acute osseous findings. Visualized upper abdomen is within normal limits. XR/XR chest 2V IMPRESSION: No acute cardiopulmonary findings.
[2023-08-07 08:50] VITALS: BP 114/56; PULSE 88; RESP 18; TEMP 36.8; O2SAT 99; BMI 27.8
--- NOTE | 2023-08-07 08:58 | ED.RECABL ---
HPI - Recheck/Abnormal Lab/Rx General Chief Complaint: Recheck/Abnormal Lab/Rx Stated Complaint: Seen few days ago - abnormal labs Time Seen by Provider: 08/07/23 08:52 Source: patient and old records reviewed Mode of arrival: ambulatory Limitations: no limitations History of Present Illness ED Provider: NICKO AU narrative: 63 yo male with PMH of barretts esophagus, treated Hep C, chronic back pain who has been on doxy 100mg BID for the past 2 weeks following rash on back and then seen here on 08/03 and found to have pancytopenia. He had tick panel sent off showing + babesios he was intstructed to come back given hemoglobin was 9.6 from 12.5, plts 84 from 275 to have recheck labs and start on appropriate therapy. Initial bite he thinks was 2 weeks ago. complaint: abnormal lab Initial visit (ago): day(s) (3) Initial visit for: other (malaise, tick borne illness) Returns today for: called because of abnormal lab/test Symptoms since prior visit: no new symptoms (continued malaise, fatigue) Context: called for abnormal lab result Associated symptoms: chills, malaise and nausea Treatments prior to arrival: other (has been taking doxy 100mg BID) Related Data Home Medications ?Medication ?Instructions ?Recorded ?Confirmed amitriptyline 10 mg tablet 10 mg PO BEDTIME 11/14/20 06/18/23 baclofen 10 mg tablet 10 mg PO TID 11/14/20 06/18/23 ibuprofen 800 mg tablet 800 mg PO BID PRN Pain 11/14/20 06/14/23 cetirizine 10 mg tablet 10 mg PO DAILY 06/14/23 06/14/23 gabapentin 100 mg capsule 100 mg PO DAILY 06/14/23 06/18/23 omeprazole 20 mg capsule,delayed 20 mg PO DAILY 06/14/23 06/14/23 release Previous Rx's ?Medication ?Instructions ?Recorded budesonide 180 mcg/actuation 2 inh inhalation QAM #1 ea 07/21/22 breath activated powder inhaler (Pulmicort Flexhaler) fluticasone 250 mcg-salmeterol 50 1 inh inhalation Q12H #60 ea 07/21/22 mcg/dose blistr powdr for inhalation (Advair Diskus) lorazepam 0.5 mg tablet (Ativan) 1 mg (2 x 0.5 mg) PO BEDTIME PRN 10/18/22 anxiety #28 tabs doxycycline hyclate 100 mg tablet 100 mg PO Q12H 21 days #42 tabs 08/04/23 atovaquone 750 mg/5 mL oral 750 mg (5 mL) PO BID 9 days #90 mL 08/07/23 suspension azithromycin 250 mg tablet 250 mg PO DAILY 9 days #9 tabs 08/07/23 Allergies Allergy/AdvReac Type Severity Reaction Status Date / Time No Known Allergies Allergy Verified 08/07/23 08:52 Review of Systems Review of Systems: Constitutional : No Fever, pos Chills, pos Fatigue ENT/Mouth : No sore throat, No Rhinorrhea Eyes: No Eye Pain, No Swelling, No Redness Cardiovascular : No Chest Pain, No SOB, No Dyspnea on Exertion Respiratory : No Cough, No Sputum Gastrointestinal : pos Nausea, No Vomiting, No Diarrhea, No abdominal Pain Genitourinary : No Dysuria, No Urinary Frequency, pos dark urine Musculoskeletal : pos joint pain, pos Myalgias, No Joint Swelling Skin : No Skin Lesions, No rash Neuro : pos Weakness, No Numbness, No Dizziness, positive Headache Psych : No Anxiety/Panic, No Depression All other systems reviewed and are negative PMFSH Past Medical History Attestation statement: The following information was validated with the patient. Source: old records reviewed Medical History Barretts esophagus Chronic neck pain Depression Chronic back pain Hepatitis C Surgical History History of esophagogastroduodenoscopy (EGD) History of back surgery Hx of oral surgery History of removal of cyst Hx of eye surgery Hx of colonoscopy Social History Social History Alcohol intake: never Patient Tobacco Use Status: Former Tobacco user Tobacco use type: Cigarette Smoked in Last 30 Days: No Use of substances other than those prescribed or required for medical reasons: No Advance Directives: No Advance Directives Information Provided: Yes Do you have a plan to hurt others: No Plan Physical Exam Vital Signs: Vital Signs: Last Vital Signs Temp 98.3 F 08/07/23 08:50 Pulse 88 08/07/23 08:50 Resp 18 08/07/23 08:50 BP 114/56 L 08/07/23 08:50 Pulse Ox 99 08/07/23 08:50 O2 Del Method Room Air 08/07/23 08:50 BMI result Body Mass Index 27.8 Appearance: Alert. Oriented X3. No acute distress. Eyes: Pupils equal, round and reactive to light. ENT: Pharynx normal. Neck: Normal inspection. Neck supple. CVS: Normal heart rate and rhythm. Pulses normal. Respiratory: No respiratory distress. Breath sounds normal. Abdomen: Soft and nontender. Skin: Skin warm and dry. Normal skin color. Normal skin turgor. Extremities: No lower extremity edema. No calf ttp Neuro: Oriented X 3. No motor deficit. No sensory deficit. Course Course Course Narrative: based off parasite less than 1% CBC stable can be managed as outpatient Medical Decision Making Medical Decision Making [facility] Narrative: 63 yo male with PMH of barretts esophagus, treated Hep C, chronic back pain here with c/o persistent symptoms of babesiosis x 2 weeks at this time known dx will obtain repeat labs and make sure he is not getting worse obtain thin smear based off symptoms and not immunocompromised can probably start on oral azithrom and atovaquone as long as CBC not worse. Differential Diagnosis Differential Diagnoses: The differential diagnosis associated with the presentation includes known babesiosis mild to moderate vs severe infection Admission/Observation Consideration of admission/observation: Escalation of care including admission/observation considered CBC stable, less than 1% burden can trial oral outpatient Lab Data [facility] Lab Attestation statement: I reviewed the patient's lab results. 08/07/23 09:08 08/07/23 09:08 Labs: Lab Results 08/07/23 Range/Units 09:08 WBC 2.3 L (4.8-10.8) X10*3/uL RBC 3.54 L (4.60-5.80) X10*6/uL Hgb 10.0 L (14.0-18.0) g/dl Hct 29.5 L (42.0-52.0) % MCV 83.3 (80.0-98.0) fL MCH 28.2 (27.0-33.0) pg MCHC 33.9 (31.0-36.0) g/dl RDW 16.8 H (11.0-16.0) % Plt Count 88 L (160-400) X10*3/uL MPV 11.3 (9.4-12.4) fL Immature Gran % (Auto) 0.4 (0.0-0.4) % Neut % (Auto) 55.5 (45-73) % Lymph % (Auto) 33.3 (20-40) % [place] % (Auto) 9.5 (2-11) % Eos % (Auto) 0.9 (0-4) % Baso % (Auto) 0.4 (0-2) % Lymph # (Auto) 0.8 L (1.2-4.9) X10*3/uL [place] # (Auto) 0.2 (0.1-1.2) X10*3/uL Eos # (Auto) 0.0 (0.0-0.4) X10*3/uL Baso # (Auto) 0.0 (0.0-0.2) X10*3/uL Abs Immat Gran (auto) 0.01 (0.00-0.03) X10*3/uL Absolute Neuts (auto) 1.3 L (2.0-8.3) x10*3/uL Absolute Nucleated RBC 0.000 (0.0-0.012) X10*3/uL Nucleated RBC % (auto) 0.0 (0.0-0.2) /100WBC Smear Tech's Comments VERIFIED Smear Path Review SEE NOTE Sodium 140 (135-145) mmol/L Potassium 3.9 (3.3-5.1) mmol/L Chloride 108 (96-108) mmol/L Carbon Dioxide 24 (22-29) mmol/L Anion Gap 12 (12-20) BUN 16 (9-16) mg/dL Creatinine 0.86 (0.5-1.4) mg/dL Estim Creat Clear Calc 95.1 Estimated GFR > 60 Random Glucose 100 (60-115) mg/dL Calcium 8.6 (8.4-10.2) mg/dL Total Bilirubin 0.6 (0.0-1.0) mg/dL Direct Bilirubin 0.3 (0.0-0.5) mg/dL AST 142 H (5-37) U/L ALT 97 H (0-40) U/L Alkaline Phosphatase 75 (39-117) U/L Lactate Dehydrogenase 1043 H (118-273) U/L Total Protein 6.7 (6.5-8.0) g/dL Albumin 3.4 L (3.5-5.0) g/dL Independent Interpretation I performed an independent interpretation of an: EKG and Plain X-Ray Interpretation: Rate: 81 Rhythm: NSR [place]: normal Normal P waves. Normal AMANDA. Normal QRS complex. ST T wave : normal no EDGARDO qTC: 432 prior studies: no acute ischemia The study has been interpreted contemporaneously by me. . Radiology Impression Discussion of test interpretation with radiology: I have reviewed the radiologist's reading. External Record Review External record reviewed: Inpatient record Prescription Management I considered prescription management with: Antibiotic and Other Discharge Plan Discharge Clinical Impression: Babesiosis, Pancytopenia Patient Disposition: Home, Self-Care Instructions: Pancytopenia (DC) Additional Instructions: you have babesiosis avoid aspirin return for bloody stools, unexplained bleeding, worsening symptoms complete all antibiotics repeat CBC / liver function tests with your doctor in 2 days less than 1% parasite burden Prescriptions: New azithromycin 250 mg tablet 250 mg PO DAILY 9 Days Qty: 9 0RF Rx Instructions: start on day 2 of therapy atovaquone 750 mg/5 mL suspension 750 mg PO BID 9 Days Qty: 90 0RF Rx Instructions: must administer with food, preferably a high-fat meal No Action ibuprofen 800 mg Tablet 800 mg PO BID PRN (Reason: Pain) amitriptyline 10 mg Tablet 10 mg PO BEDTIME baclofen 10 mg Tablet 10 mg PO TID fluticasone propion-salmeterol [Advair Diskus] 250-50 mcg/dose blister with device 1 inh inhalation Q12H Qty: 60 0RF Pulmicort Flexhaler 180 mcg/actuation aerosol powdr breath activated 2 inh inhalation QAM Qty: 1 0RF lorazepam [Ativan] 0.5 mg tablet 1 mg PO BEDTIME PRN (Reason: anxiety) Qty: 28 0RF cetirizine 10 mg tablet 10 mg PO DAILY omeprazole 20 mg capsule,delayed release(DR/EC) 20 mg PO DAILY gabapentin 100 mg Capsule 100 mg PO DAILY doxycycline hyclate 100 mg tablet 100 mg PO Q12H 21 Days Qty: 42 0RF Print Language: Honduran
--- NOTE | 2023-08-07 09:11 | ECG_ITS ---
Test Reason : weakness Blood Pressure : / mmHG Vent. Rate : 081 BPM Atrial Rate : 081 BPM P-R Int : 178 ms QRS Dur : 080 ms QT Int : 372 ms P-R-T Axes : 064 014 035 degrees QTc Int : 432 ms Normal sinus rhythm Normal ECG When compared with ECG of 06-NOV-2022 18:02, QRS axis Shifted left Referred By: Kelley Lebron Electronically Signed By:Jose Juan Dubose
[2023-08-07 09:18] LABS: Basophils Percent Auto 0.4 % (0-2); Eosinophils Percent Auto 0.9 % (0-4); Hematocrit 29.5 % (42.0-52.0); Imm Gran Abs Auto 0.01 X10*3/uL (0.00-0.03); Imm Gran Pct Auto 0.4 % (0.0-0.4); Lymphocytes Absolute Auto 0.8 X10*3/uL (1.2-4.9); Lymphocytes Percent Auto 33.3 % (20-40); MANUAL DIFF FLAG SCAN; Mean Corpuscular HGB Conc 33.9 g/dl (31.0-36.0); Mean Corpuscular Hemoglobin 28.2 pg (27.0-33.0); Mean Corpuscular Volume 83.3 fL (80.0-98.0); Mean Platelet Volume 11.3 fL (9.4-12.4); Monocytes Absolute Auto 0.2 X10*3/uL (0.1-1.2); Monocytes Percent Auto 9.5 % (2-11); Neutrophils Absolute Auto 1.3 x10*3/uL (2.0-8.3); Neutrophils Percent Auto 55.5 % (45-73); Red Blood Count 3.54 X10*6/uL (4.60-5.80); Red Cell Distribution Width 16.8 % (11.0-16.0); SCAN SMEAR FLAG 1
[2023-08-07 09:23] LABS: White Blood Count 2.3 X10*3/uL (4.8-10.8)
--- NOTE | 2023-08-07 09:30 | PC.NURSE ---
Presents to ED due to phone call he received telling him to come in and get seen. Pt was here this past Saturday, reports he had a tick bite a couple weeks ago, did not find the tick but found the red zuni on his left shoulder. Reports symptoms of extreme fatigue, cough, chills, joint pain in left hand and headache in back of his head since the bite. Is on a course of Doxycycline currently. Alert and oriented, breathing even and unlabored, skin warm and dry.
[2023-08-07 09:31] LABS: Platelet Count 88 X10*3/uL (160-400)
[2023-08-07 09:38] LABS: Alanine Aminotransferase 97 U/L (0-40); Albumin Level 3.4 g/dL (3.5-5.0); Alkaline Phosphatase 75 U/L (39-117); Anion Gap 12 (12-20); Aspartate Amino Transferase 142 U/L (5-37); Bilirubin Direct 0.3 mg/dL (0.0-0.5); Bilirubin Total 0.6 mg/dL (0.0-1.0); Blood Urea Nitrogen 16 mg/dL (9-16); Calcium 8.6 mg/dL (8.4-10.2); Carbon Dioxide 24 mmol/L (22-29); Chloride 108 mmol/L (96-108); Creatinine Clr Calc Pharmacy 95.1; Estimated Glomerular Filt Rate > 60; Glucose Random 100 mg/dL (60-115); Lactate Dehydrogenase 1043 U/L (118-273); Potassium 3.9 mmol/L (3.3-5.1); Sodium 140 mmol/L (135-145); Total Protein 6.7 g/dL (6.5-8.0)
[2023-08-07 09:54] LABS: SLIDE REVIEW VERIFIED
--- NOTE | 2023-08-07 09:55 | PC.NURSE ---
No cultures needed per provider.
[2023-08-07] MEDS: Atovaquone 750 MG/5 ML ORAL.SUSP PO (10:35)
[2023-08-07] MEDS: Azithromycin 500 MG in 0.9 % Sodium Chloride 250 ML 125 MG IV (10:36)
[2023-08-07 10:43] VITALS: BP 150/76; PULSE 88; RESP 16; TEMP 36.7; O2SAT 98
[2023-08-07 11:00] LABS: Appearance Urine Clear; Color Urine Dark Yellow; Glucose Urine UA Negative (Negative); Leukocyte Esterase Urine Negative (Negative); Nitrite Urine Negative (Negative); Specific Gravity - Urine >= 1.030 (1.005-1.025); UMIC TRIGGER UACC YES; Urine Blood Negative (Negative); Urine Ketones 15 mg/dL (Negative); Urine Protein 100 (2+) mg/dL (Neg-Trace)
[2023-08-07 11:11] LABS: Bacteria Urine None Seen (None Seen); Hyaline Casts Urine 0-2 /LPF (0-2); RBC Urine 0-2 /HPF (0-2); Squamous Epithelial Cell Urine 0-2 /HPF (0-2); WBC Urine 0-5 /HPF (0-5)
[2023-08-07] MEDS: 0.9 % Sodium Chloride 1,000 ML 999 ML IV (11:13)
[2023-08-07 13:39] VITALS: BP 108/67; PULSE 97; RESP 19; TEMP 38.2; O2SAT 96
[2023-08-07 14:05] VITALS: BP 108/67; PULSE 97; RESP 19; TEMP 38.2; O2SAT 96
[2023-08-08 22:13] LABS: Haptoglobin <10 mg/dL (43-212)
== END 2023-08-07 14:06 | disposition home or self-care (01) ==
PROVIDERS: Emergency Provider Emergency Medicine; PCP Nurse Practitioner Family
DX: B60.00 Babesiosis, unspecified (principal); D61.818 Other pancytopenia; M54.50 Low back pain, unspecified; R05.9 Cough, unspecified; R11.0 Nausea; R79.89 Other specified abnormal findings of blood chemistry; R53.81 Other malaise; Z79.899 Other long term (current) drug therapy
CPT/HCPCS: 36415; 71046; 80048; 80076; 81001; 81003; 83010; 83615; 85025; 87207; 93005; 96365; 96366; 99284; 99285; J0456

== ENCOUNTER → 2023-08-07 09:11 | Outpatient (BNV) | payer MEDICARE, SELFPAY | PROVIDERS: Emergency Provider Emergency Medicine; PCP Nurse Practitioner Family; Visit Provider Internal Medicine Cardiovascular Disease | DX: R53.1 Weakness (principal) | CPT/HCPCS: 93010 ==